=== PATIENT | male | born 1940 | race Caucasian/White ===

== ENCOUNTER → 2022-06-14 10:04 | Outpatient (BNVA) | payer MEDICARE, OTHER, SELFPAY | PROVIDERS: Visit Provider Nurse Practitioner Family | DX: I87.2 Venous insufficiency (chronic) (peripheral) (principal); L97.822 Non-pressure chronic ulcer of other part of left lower leg with fat layer exposed; I96 Gangrene, not elsewhere classified | CPT/HCPCS: 11042; 87070; 87077; 87176; 87186; 87205; 99203 ==

== ENCOUNTER → 2022-06-21 10:21 | Outpatient (BNVA) | payer MEDICARE, OTHER, SELFPAY | PROVIDERS: Visit Provider Thoracic Surgery (Cardiothoracic Vascular Surgery) | DX: I96 Gangrene, not elsewhere classified (principal); I87.2 Venous insufficiency (chronic) (peripheral); L97.822 Non-pressure chronic ulcer of other part of left lower leg with fat layer exposed | CPT/HCPCS: 11042; A6252 ==

== ENCOUNTER → 2022-06-26 12:58 | Outpatient (BNVA) | payer MEDICARE, OTHER, SELFPAY | PROVIDERS: Visit Provider Nurse Practitioner Family | DX: I96 Gangrene, not elsewhere classified (principal); I87.2 Venous insufficiency (chronic) (peripheral); L97.822 Non-pressure chronic ulcer of other part of left lower leg with fat layer exposed | CPT/HCPCS: 11042; A6252 ==

== ENCOUNTER → 2022-06-29 13:21 | Outpatient (BNVA) | payer MEDICARE, OTHER, SELFPAY | PROVIDERS: Visit Provider Surgery | DX: I96 Gangrene, not elsewhere classified (principal); I87.2 Venous insufficiency (chronic) (peripheral); L97.822 Non-pressure chronic ulcer of other part of left lower leg with fat layer exposed | CPT/HCPCS: 29581; A6252 ==

== ENCOUNTER → 2022-07-03 10:37 | Outpatient (BNVA) | payer MEDICARE, OTHER, SELFPAY | PROVIDERS: Visit Provider Nurse Practitioner Family | DX: I96 Gangrene, not elsewhere classified (principal); I87.2 Venous insufficiency (chronic) (peripheral); L97.822 Non-pressure chronic ulcer of other part of left lower leg with fat layer exposed | CPT/HCPCS: 11042; A6252 ==

== ENCOUNTER → 2022-07-10 09:22 | Outpatient (BNVA) | payer MEDICARE, OTHER, SELFPAY | PROVIDERS: Visit Provider Nurse Practitioner Family | DX: I96 Gangrene, not elsewhere classified (principal); I87.2 Venous insufficiency (chronic) (peripheral); L97.822 Non-pressure chronic ulcer of other part of left lower leg with fat layer exposed | CPT/HCPCS: 11042 ==

== ENCOUNTER → 2022-07-17 08:23 | Outpatient (BNVA) | payer MEDICARE, OTHER, SELFPAY | PROVIDERS: Visit Provider Nurse Practitioner Family | DX: I96 Gangrene, not elsewhere classified (principal); I87.2 Venous insufficiency (chronic) (peripheral); L97.822 Non-pressure chronic ulcer of other part of left lower leg with fat layer exposed | CPT/HCPCS: 11042; A6252 ==

== ENCOUNTER → 2022-07-24 10:28 | Outpatient (BNVA) | payer MEDICARE, OTHER, SELFPAY | PROVIDERS: Visit Provider Nurse Practitioner Family | DX: I96 Gangrene, not elsewhere classified (principal); I87.2 Venous insufficiency (chronic) (peripheral); L97.822 Non-pressure chronic ulcer of other part of left lower leg with fat layer exposed | CPT/HCPCS: 11042 ==

== ENCOUNTER → 2022-07-31 13:04 | Outpatient (BNVA) | payer MEDICARE, OTHER, SELFPAY | PROVIDERS: Visit Provider Nurse Practitioner Family | DX: I96 Gangrene, not elsewhere classified (principal); I87.2 Venous insufficiency (chronic) (peripheral); L97.822 Non-pressure chronic ulcer of other part of left lower leg with fat layer exposed | CPT/HCPCS: 11042 ==

== ENCOUNTER → 2022-08-07 13:00 | Outpatient (BNVA) | payer MEDICARE, OTHER, SELFPAY | PROVIDERS: Visit Provider Nurse Practitioner Family | DX: I96 Gangrene, not elsewhere classified (principal); I87.2 Venous insufficiency (chronic) (peripheral); L97.822 Non-pressure chronic ulcer of other part of left lower leg with fat layer exposed | CPT/HCPCS: 11042; A6251 ==

== ENCOUNTER → 2022-08-14 08:50 | Outpatient (BNVA) | payer MEDICARE, OTHER, SELFPAY | PROVIDERS: Visit Provider Nurse Practitioner Family | DX: I96 Gangrene, not elsewhere classified (principal); I87.2 Venous insufficiency (chronic) (peripheral); L97.822 Non-pressure chronic ulcer of other part of left lower leg with fat layer exposed | CPT/HCPCS: 11042; A6252 ==

== ENCOUNTER → 2022-08-21 10:20 | Outpatient (BNVA) | payer MEDICARE, OTHER, SELFPAY | PROVIDERS: Visit Provider Nurse Practitioner Family | DX: I87.2 Venous insufficiency (chronic) (peripheral) (principal); L97.822 Non-pressure chronic ulcer of other part of left lower leg with fat layer exposed | CPT/HCPCS: 99212 ==

== ENCOUNTER 2022-08-28 10:36 | Inpatient (IN) | payer MEDICARE, OTHER, SELFPAY ==
[2022-08-28] VITALS (29 sets, daily range): BP systolic 85–136; BP diastolic 47–83; PULSE 68–130; RESP 10–22; TEMP 36.8–36.9; O2SAT 94–100; BMI 32.1
--- NOTE | 2022-08-28 11:10 | XRR_ITS ---
PROCEDURE INFORMATION: Exam: XR Chest Exam date and time: 08/28/2022 12:19 PM Age: 81 years old Clinical indication: Shortness of breath; Patient HX: Tachycardia; Additional info: SOB TECHNIQUE: Imaging protocol: Radiologic exam of the chest. Views: 1 view. COMPARISON: No relevant prior studies available. 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 No pneumonia. Pleural spaces: Unremarkable. No pleural effusion. No pneumothorax. Heart/Mediastinum: The heart is not enlarged. The aorta is calcified and tortuous. There is benign calcification of the azygous lymph node. Bones/joints: Unremarkable. XR/XR chest 1V portable [id number] IMPRESSION: No acute abnormality.
--- NOTE | 2022-08-28 11:13 | ED_ITS ---
HPI - Arrhythmia/Palpitations General: Chief Complaint: Arrhythmia/Palpitations Stated Complaint: Chest Pain Time Seen by Provider: 08/28/22 11:00 History of Present Illness: Patient comes in by EMS from the [facility] [place] with palpitations and tachycardia. In route EMS did an EKG which shows a flutter with variable conduction and rapid ventricular response. Patient denies any history of abnormal rhythm. Denies any recent cold symptoms including no fever, cough, congestion, vomiting, or diarrhea. Denies chest pain, or shortness of breath. Associated symptoms: Deny anxiety, nausea or vomiting Review of Systems Const: Denies: fever(s) or body aches Eyes: Denies: change in vision or blurry vision ENMT: Denies: throat pain or odynophagia Card: Reports: palpitations; Denies: chest pain Resp: Denies: dyspnea or productive cough GI: Denies: abdominal pain, nausea or vomiting : Denies: flank pain or dysuria Musc: Denies: neck pain or back pain Skin/Breast: Reports: other (Redness and swelling to the left lower extre mity); Denies: rash or pruritus Neuro: Denies: headache(s) or numbness in extremities Psych: Denies: anxiety or change in appetite Endo: Denies: polyuria or excessive sweating Physical Exam Const: COMMON NORMALS: no acute distress, patient oriented x3, healthy appearing and alert HENMT: COMMON NORMALS: normocephalic and atraumatic HEAD & SCALP: normocephalic and atraumatic Eye: COMMON NORMALS: Equal, round and reactive pupils present and EOMs intact bilaterally PUPIL: Yes Equal, round and reactive pupils present Neck/C-Spine: COMMON NORMALS: full ROM and supple Resp: COMMON NORMALS: normal respiratory effort, No retractions and No use of accessory muscles Cardio: OTHER: Tachycardia with an irregularly irregular rhythm GI: COMMON NORMALS: Normal to inspection, nondistended, normoactive bowel sounds present, Soft to palpation and non-tender PALPATION: Yes Soft to palpation Back/Pelvis: COMMON NORMALS: thoracic and lumbar spine normal to inspection and no thoracic nor lumbar tenderness Extremity: COMMON NORMALS: normal to inspection and full ROM Neuro: COMMON NORMALS: patient oriented x3 SENSORIUM/ORIENTATION: Yes alert Psych: COMMON NORMALS: mental status grossly normal and cooperative Skin: OTHER: Left lower leg is erythematous, hot to touch, swollen, with multiple small healing ulcerating wound Course Vital Signs: Vital signs: Vital Signs Temperature 98.3 F 08/28/22 10:39 Pulse Rate 77 08/28/22 12:30 Respiratory Rate 17 08/28/22 12:30 Blood Pressure 135/73 08/28/22 12:30 Pulse Oximetry 97 08/28/22 12:30 Oxygen Delivery Me thod 08/28/22 11:50 MDM - Arrhythmia/Palpitations Medical Decision Making Patient comes in by EMS from the wound care center with palpitations and tachycardia. In route EMS did an EKG which shows a flutter with variable conduction and rapid ventricular response. Patient denies any history of abnormal rhythm. Denies any recent cold symptoms including no fever, cough, congestion, vomiting, or diarrhea. Denies chest pain, or shortness of breath. On physical exam he is tachycardic with an irregular irregular rhythm. He also has erythema, and chronic wound to his left lower extremity. The patient states that the erythema is no worse than normal. His left lower leg is erythematous, swollen, and hot to touch. Will check labs, give IV fluids, start diltiazem bolus and drip, and reassess. On reassessment I talked to the patient about the test results. I discussed the case with the hospitalist, and we will admit for further work-up and treatment of his new onset a flutter with RVR. His heart rate is significantly improved on the diltiazem drip. Lab Data 08/28/22 11:05 08/28/22 11:05 Radiology Impressions Chest X-Ray 08/28/22 11:10 IMPRESSION: No acute abnormality. Laboratory Results WBC 7.5 10^3/uL (4.0-10.0) 08/28/22 11:05 RBC 4.76 10^6/uL (4.1-5.3) 08/28/22 11:05 Hgb 14.6 g/dL (11.7-16.6) 08/28/22 11:05 Hct 45.0 % (42.0-52.0) 08/28/22 11:05 MCV 94.5 fl (80-94) H 08/28/22 11:05 MCH 30.7 pg (28.0-34.0) 08/28/22 11:05 MCHC 32.4 g/dL (30.0-36.0) 08/28/22 11:05 RDW 14.1 % (12.1-15.1) 08/28/22 11:05 Plt Count 294 10^3/cmm (130-400) 08/28/22 11:05 MPV 9.4 fL (7.4-10.4) 08/28/22 11:05 Neut % (Auto) 60.2 % 08/28/22 11:05 Lymph % (Auto) 28.4 % 08/28/22 11:05 [place] % (Auto) 7.0 % 08/28/22 11:05 Eos % (Auto) 3.2 % 08/28/22 11:05 Baso % (Auto) 0.8 % 08/28/22 11:05 Neut # (Auto) 4.54 10^3/uL (1.8-7.7) 08/28/22 11:05 Lymph # (Auto) 2.1 10^3/uL (0.8-4.8) 08/28/22 11:05 [place] # (Auto) 0.5 10^3/uL (0.2-0.9) 08/28/22 11:05 Eos # (Auto) 0.2 10^3/uL (0.0-0.8) 08/28/22 11:05 Baso # (Auto) 0.1 10^3/uL (0.0-0.1) 08/28/22 11:05 Nucleated RBC % (auto) 0 % 08/28/22 11:05 Nucleated RBCs # 0.0 /100WBC 08/28/22 11:05 PT 13.00 SECONDS (12.1-14.9) 08/28/22 11:05 INR 0.96 (0.8-1.2) 08/28/22 11:05 APTT 30.1 SECONDS (23.9-36.7) 08/28/22 11:05 Sodium 139 mmol/L (136-145) 08/28/22 11:05 Potassium 3.8 mmol/L (3.5-5.1) 08/28/22 11:05 Chloride 102 mmol/L (98-107) 08/28/22 11:05 Carbon Dioxide 27 mmol/L (22-29) 08/28/22 11:05 Anion Gap 13.8 (5-19) 08/28/22 11:05 BUN 25 mg/dL (8-23) H 08/28/22 11:05 Creatinine 1.1 mg/dL (0.7-1.2) 08/28/22 11:05 GFR Calculation Not Reportable 08/28/22 11:05 Glucose 132 mg/dL (65-115) H 08/28/22 11:05 Calculated Osmolality 294 mOsm/kg (285-295) 08/28/22 11:05 Calcium 9.4 mg/dL (8.5-10.5) 08/28/22 11:05 Total Bilirubin 0.3 mg/dL (0.15-1.2) 08/28/22 11:05 AST 26 U/L (0-40) 08/28/22 11:05 ALT 24 U/L (0-41) 08/28/22 11:05 Alkaline Phosphatase 73 U/L (40-130) 08/28/22 11:05 Troponin T Baseline 24 ng/L (0-15) H 08/28/22 11:05 Total Protein 7.3 g/dL (6.6-8.7) 08/28/22 11:05 Albumin 4.1 g/dL (3.5-5.2) 08/28/22 11:05 Globulin 3.2 g/dL (1.3-4.6) 08/28/22 11:05 Critical Care Time Critical Care Time: Critical Care Time: Yes Total Critical Care Time: 35 Attestation: This case had a high probability of a clinically significant, sudden, or life threatening deterioration of this patient's condition which required my full and direct attention, intervention and personal management. Discharge Plan Discharge Patient Disposition: Placed in Observation Clinical Impression: Atrial flutter with rapid ventricular response Condition: Stable Prescriptions: No Action levothyroxine 137 mcg tablet 137 mcg PO QAM aspirin [Aspir-81] 81 mg Tablet,Delayed Release (Dr/Ec) 81 mg PO QAM acetaminophen [Tylenol Arthritis Pain] 650 mg Tablet Extended Release 1,300 mg PO BID modafinil 200 mg tablet 300 mg PO QAM balsalazide 750 mg capsule 1,500 mg PO QAM rosuvastatin 10 mg tablet 10 mg PO QAM naproxen 250 mg Tablet 500 mg PO Q6H PRN (Reason: Pain) Vitamin C 500 mg Tablet,Chewable 1,500 mg PO DAILY cranberry extract 50 mg Tablet,Chewable 100 mg PO DAILY Elderberry Gummies 1 cap PO DAILY Coding Level of Care Code ED Flight Crew Ordnanceman for Chg Fwd Exam Comprehensive
[2022-08-28 11:24] LABS: Basophils # 0.1 10^3/uL (0.0-0.1); Basophils % 0.8 %; Eosinophils # 0.2 10^3/uL (0.0-0.8); Eosinophils % 3.2 %; Hemoglobin 14.6 g/dL (11.7-16.6); Lymphocytes # 2.1 10^3/uL (0.8-4.8); Lymphocytes % 28.4 %; Mean Corpuscular HGB Conc 32.4 g/dL (30.0-36.0); Mean Corpuscular Hemoglobin 30.7 pg (28.0-34.0); Mean Corpuscular Volume 94.5 fl (80-94); Mean Platelet Volume 9.4 fL (7.4-10.4); Monocytes # 0.5 10^3/uL (0.2-0.9); Neutrophils # 4.54 10^3/uL (1.8-7.7); Neutrophils % 60.2 %; Nucleated Red Blood Cells % 0 %; Platelet Count 294 10^3/cmm (130-400); Red Blood Count 4.76 10^6/uL (4.1-5.3); Red Cell Distribution Width 14.1 % (12.1-15.1); White Blood Count 7.5 10^3/uL (4.0-10.0)
[2022-08-28 11:29] LABS: INR 0.96 (0.8-1.2)
[2022-08-28 11:30] LABS: Partial Thromboplastin Time 30.1 SECONDS (23.9-36.7)
--- NOTE | 2022-08-28 11:34 | ECG_ITS ---
[facility] Test Date: 2022-08-28 Pat Name: CHEMA GONZALEZ Department: Room: Gender: Male Schedule Maker: : 1940 Requested By: Seth Boyer Order Number: [id number] Geo MD: Noreen Douglas M.D. Measurements Intervals [place] Rate: 88 P: 0 FL: 0 QRS: -67 QRSD: 154 T: 31 QT: 384 QTc: 465 Interpretive Statements ATRIAL FLUTTER RIGHT BUNDLE BRANCH BLOCK LEFT ANTERIOR FASCICULAR BLOCK [QRS AXIS <= -45, QR IN I, RS IN II] MODERATE VOLTAGE CRITERIA FOR LVH, CONSIDER NORMAL VARIANT No previous ECG available for comparison Electronically Signed On 08-28-2022 18:10:10 [employer]OLLEY[employer]ALL COACH by Noreen Douglas M.D. [id number]
[2022-08-28] MEDS: calcium gluconate 0.9% NaCL 1 GM/50 ML PREMIX IV (11:36)
[2022-08-28] MEDS: sodium chloride 0.9% 1,000 ML 999 ML IV (11:37)
[2022-08-28 11:40] LABS: Alanine Aminotransferase 24 U/L (0-41); Albumin Level 4.1 g/dL (3.5-5.2); Alkaline Phosphatase 73 U/L (40-130); Anion Gap 13.8 (5-19); Aspartate Amino Transferase 26 U/L (0-40); Blood Urea Nitrogen 25 mg/dL (8-23); Calcium 9.4 mg/dL (8.5-10.5); Carbon Dioxide 27 mmol/L (22-29); Chloride 102 mmol/L (98-107); Globulin 3.2 g/dL (1.3-4.6); Glucose 132 mg/dL (65-115); Osmolality Calculated 294 mOsm/kg (285-295); Potassium 3.8 mmol/L (3.5-5.1); Sodium 139 mmol/L (136-145); Total Bilirubin 0.3 mg/dL (0.15-1.2); Total Protein 7.3 g/dL (6.6-8.7)
[2022-08-28 11:45] LABS: Troponin(5th) Baseline 24 ng/L (0-15)
[2022-08-28] MEDS: dilTIAZem 5 mg/mL SDV 5 mL IVP (12:02)
[2022-08-28] MEDS: dilTIAZem 100 MG in sodium chloride 0.9% (add-van) 100 ML IV (12:26)
--- NOTE | 2022-08-28 12:46 | PC.PHAR ---
pt and pts lul (home#[phone]) (cell# [phone])verified pts medications
[2022-08-28 13:50] LABS: Troponin 5 2HR 28.77 ng/L (0-15)
[2022-08-28 13:52] LABS: Troponin 5 2HR Delta 4.77 ABS# (0-10)
--- NOTE | 2022-08-28 14:57 | PM.HP ---
Providers/Chief Complaint Admitting Physician: Teresita Menchaca MD Primary Care Provider: Dr. Yokasta Joseph, [facility] in [place] Chief Complaint: Chest Pain History of Present Illness Clint Aguila is a 81 year old male who presented to the emergency room from wound care clinic due to report of some chest pain and tachycardia. Patient has been followed at wound care clinic for some time for wounds to his left lower extremity. He has known peripheral vascular disease with chronic venous insufficiency and has had several sores to his left leg. Today he describes some chest discomfort that went into the upper half of both of his arms to the elbows. Nursing staff checked his vital signs and found him to be tachycardic. Given the combination of chest pain and tachycardia they called for an ambulance to bring him to the emergency room for further evaluation. EMS performed EKG that showed atrial fibrillation/flutter with rapid ventricular response. Other than the transient chest discomfort extending into his arms, patient denied any specific symptoms. He was not aware that his heart rate was high. He denies having had similar findings previously. He has never been told that he has an abnormal heart rhythm. He has a history of aortic stenosis, hyperlipidemia and already mentioned peripheral vascular disease but is not otherwise known to have arterial disease nor coronary artery disease. He denies any recent issues with dizziness or syncope. He is has an occasional cough and describes seasonal chest congestion. He has had issues with a diagnosis of asthma in the past but denies any recent problems with it. No recent fever or chills. He has had some constipation recently which is new for him usually has soft long stools. No blood in his stools have been noted nor any other signs of bleeding lately. No complaints of any focal weakness, numbness or paresthesias. He has not had any further chest pain. In the emergency room initial heart rate as high as into the 120s and 130s. Patient received Cardizem bolus and was started on a Cardizem drip with rate control obtained thereafter. Initial troponin at 24 with 2-hour troponin of 28.77. Given advanced age, comorbidities and new onset atrial fibrillation requiring IV diltiazem for rate control request was made for admission. Review of Systems Const: Reports: fatigue; Denies: fever(s) ENMT: Denies: throat pain Card: Reports: chest pain (Really more upper arm pain bilaterally) and edema; Denies: palpitations, syncope or orthopnea Resp: Reports: non-productive cough and chest congestion (Chronic rather than acute, more seasonal); Denies: pain on inspiration GI: Reports: constipation and change in bowel habits (Not soft like they usually are); Denies: abdominal pain, nausea, vomiting or hematochezia : Denies: change in urine stream Skin/Breast: Reports: sores; Denies: pruritus Neuro: Denies: headache(s), difficulty walking or dizziness Medications/Allergies Home Medications Medication Instructions Recorded Confirmed Last Taken Type Elderberry Gummies 1 cap PO DAILY 08/28/22 08/28/22 Unknown History acetaminophen 650 mg 1,300 mg PO BID 08/28/22 08/28/22 08/28/22 History tablet,extended release (Tylenol Arthritis Pain) ascorbic acid (vitamin C) 500 mg 1,500 mg PO DAILY 08/28/22 08/28/22 Unknown History chewable tablet (Vitamin C) aspirin 81 mg tablet,delayed 81 mg PO QAM 08/28/22 08/28/22 08/28/22 History release balsalazide 750 mg capsule 1,500 mg PO QAM 08/28/22 08/28/22 08/28/22 History cranberry extract 50 mg chewable 100 mg PO DAILY 08/28/22 08/28/22 Unknown History tablet levothyroxine 137 mcg tablet 137 mcg PO QAM 08/28/22 08/28/22 08/28/22 History modafinil 200 mg tablet 300 mg PO QAM 08/28/22 08/28/22 08/28/22 History naproxen 250 mg tablet 500 mg PO Q6H PRN Pain 08/28/22 08/28/22 08/28/22 History rosuvastatin 10 mg tablet 10 mg PO QAM 08/28/22 08/28/22 08/28/22 History Allergies Allergy/AdvReac Type Severity Reaction Status Date / Time No Known Allergies Allergy Verified 06/21/22 10:47 PFSH Acute PFSH: Medical History (Updated 08/28/22 @ 20:42 by Teresita Menchaca MD) ADHD on modafinil Aortic valve stenosis Asthma Blood donor Erectile dysfunction History of blood clots in arm Hyperlipidemia Hypothyroidism Osteoarthritis Peripheral vascular disease Ulcerative colitis on balsalazide 2 tabs per day Surgical History (Updated 08/28/22 @ 20:37 by Teresita Menchaca MD) History of arthroscopy of left knee History of hand surgery left History of left inguinal hernia repair History of prior ablation treatment venous ablation to both lower extremities History of right inguinal hernia repair History of total left knee replacement Family History (Updated 08/28/22 @ 15:58 by Teresita Menchaca MD) Mother , age 96 Leukemia Father , age 95 CHF (congestive heart failure) Denies family history of Clotting disorder Atrial fibrillation Stroke Social History (Updated 08/28/22 @ 21:08 by Teresita Menchaca MD) Smoking and tobacco status: former smoker Alcohol intake: never Substance/Drug Use: never Marital status: Vitals/I&O/Wt Last Vital Signs Temp 98.3 F 08/28/22 10:39 Pulse 77 08/28/22 12:30 Resp 17 08/28/22 12:30 BP 135/73 08/28/22 12:30 Pulse Ox 97 08/28/22 12:30 O2 Del Method 08/28/22 11:50 Weight last 48 hrs Weight 108.862 kg Physical Exam Narrative: Constitutional: Awake and alert, able to provide full history, cooperative HEENT: Normocephalic, atraumatic, pupils are equally reactive, extraocular movements are intact, nasopharynx is clear, oropharynx is clear, mucous membranes slightly dry, facial vasculature is noted most prominently on the right cheek Neck: Large but supple, no JVD appreciated during examination Respiratory: Clear to auscultation bilaterally without any rales rhonchi or wheezes noted Cardiovascular: Regular rhythm, presently rate controlled, murmur of aortic stenosis 3/6, 1+ peripheral pulses upper extremities, less prominent in lower extremities but palpable Abdomen: Soft, nontender, positive bowel sounds Extremities: Compression stockings are in place to both lower extremities with pitting edema noted, stockings were removed from the calves and replaced. There are 3 small wounds to the left anterior pacheco with dressings in place, the most distal 1 with dried drainage measuring about half a centimeter in diameter. There is erythema with some dry flaking skin. No drainage is otherwise noted. Right lower extremity not as erythematous as the left lower extremity. No calf tenderness. Skin: See above description of wounds and stasis changes to lower extremities. Upper extremities also with dry skin. No large areas of bruising noted. Neuro: Speech clear, face symmetric, equal handgrip, moves all extremities, no tremors or abnormal movements Psych: Normal affect Data 08/28/22 11:05 08/28/22 11:05 Other Labs: Radiology Impressions Chest X-Ray 08/28/22 11:10 IMPRESSION: No acute abnormality. Laboratory Results WBC 7.5 10^3/uL (4.0-10.0) 08/28/22 11:05 RBC 4.76 10^6/uL (4.1-5.3) 08/28/22 11:05 Hgb 14.6 g/dL (11.7-16.6) 08/28/22 11:05 Hct 45.0 % (42.0-52.0) 08/28/22 11:05 MCV 94.5 fl (80-94) H 08/28/22 11:05 MCH 30.7 pg (28.0-34.0) 08/28/22 11:05 MCHC 32.4 g/dL (30.0-36.0) 08/28/22 11:05 RDW 14.1 % (12.1-15.1) 08/28/22 11:05 Plt Count 294 10^3/cmm (130-400) 08/28/22 11:05 MPV 9.4 fL (7.4-10.4) 08/28/22 11:05 Neut % (Auto) 60.2 % 08/28/22 11:05 Lymph % (Auto) 28.4 % 08/28/22 11:05 [place] % (Auto) 7.0 % 08/28/22 11:05 Eos % (Auto) 3.2 % 08/28/22 11:05 Baso % (Auto) 0.8 % 08/28/22 11:05 Neut # (Auto) 4.54 10^3/uL (1.8-7.7) 08/28/22 11:05 Lymph # (Auto) 2.1 10^3/uL (0.8-4.8) 08/28/22 11:05 [place] # (Auto) 0.5 10^3/uL (0.2-0.9) 08/28/22 11:05 Eos # (Auto) 0.2 10^3/uL (0.0-0.8) 08/28/22 11:05 Baso # (Auto) 0.1 10^3/uL (0.0-0.1) 08/28/22 11:05 Nucleated RBC % (auto) 0 % 08/28/22 11:05 Nucleated RBCs # 0.0 /100WBC 08/28/22 11:05 PT 13.00 SECONDS (12.1-14.9) 08/28/22 11:05 INR 0.96 (0.8-1.2) 08/28/22 11:05 APTT 30.1 SECONDS (23.9-36.7) 08/28/22 11:05 Sodium 139 mmol/L (136-145) 08/28/22 11:05 Potassium 3.8 mmol/L (3.5-5.1) 08/28/22 11:05 Chloride 102 mmol/L (98-107) 08/28/22 11:05 Carbon Dioxide 27 mmol/L (22-29) 08/28/22 11:05 Anion Gap 13.8 (5-19) 08/28/22 11:05 BUN 25 mg/dL (8-23) H 08/28/22 11:05 Creatinine 1.1 mg/dL (0.7-1.2) 08/28/22 11:05 GFR Calculation Not Reportable 08/28/22 11:05 Glucose 132 mg/dL (65-115) H 08/28/22 11:05 Calculated Osmolality 294 mOsm/kg (285-295) 08/28/22 11:05 Calcium 9.4 mg/dL (8.5-10.5) 08/28/22 11:05 Total Bilirubin 0.3 mg/dL (0.15-1.2) 08/28/22 11:05 AST 26 U/L (0-40) 08/28/22 11:05 ALT 24 U/L (0-41) 08/28/22 11:05 Alkaline Phosphatase 73 U/L (40-130) 08/28/22 11:05 Troponin T Baseline 24 ng/L (0-15) H 08/28/22 11:05 Troponin T 120 Minute 28.77 ng/L (0-15) H 08/28/22 13:26 Delta Troponin T 4.77 ABS# (0-10) 08/28/22 13:26 Troponin T Hi Sens 6Hr 31.97 ng/L (0-15) H 08/28/22 17:13 Troponin T Hi Sens 6Hr Delta 7.97 ng/L (0-12) 08/28/22 17:13 Total Protein 7.3 g/dL (6.6-8.7) 08/28/22 11:05 Albumin 4.1 g/dL (3.5-5.2) 08/28/22 11:05 Globulin 3.2 g/dL (1.3-4.6) 08/28/22 11:05 Urine Color Yellow (Yellow) 08/28/22 14:28 Urine Appearance Cloudy (CLEAR) A 08/28/22 14:28 Urine pH 5 (5-7) 08/28/22 14:28 Ur Specific [place] 1.025 (1.005-1.030) 08/28/22 14:28 Urine Protein Trace (Negative) 08/28/22 14:28 Urine Glucose (UA) Norm (Normal) 08/28/22 14:28 Urine Ketones 1+ (Negative) H 08/28/22 14:28 Urine Blood Neg (Negative) 08/28/22 14:28 Urine Nitrate Negative (Negative) 08/28/22 14:28 Urine Bilirubin Neg (Negative) 08/28/22 14:28 Urine Urobilinogen Norm mg/dL (Negative) 08/28/22 14:28 Ur Leukocyte Esterase Negative (Negative) 08/28/22 14:28 Urine RBC None /hpf (0-2) 08/28/22 14:28 Urine WBC 0-4 /hpf (0-5) H 08/28/22 14:28 Ur Squamous Epith Cells None /hpf (0-5) 08/28/22 14:28 Calcium Oxalate Crystal 0-4 /hpf H 08/28/22 14:28 Amorphous Sediment Not Reportable 08/28/22 14:28 Urine Bacteria Trace /hpf (NONE) 08/28/22 14:28 Urine Mucus Trace /hpf 08/28/22 14:28 A&P Assessment and plan (1) Chest pain: Predominantly noted in both upper arms, transient Qualifiers: Chest pain type: other chest pain Qualified Code(s): R07.89 - Other chest pain (2) Atrial flutter with rapid ventricular response: Newly found, minimal if any symptoms, onset unclear though could have coincided with arm pain onset. No known history of coronary artery disease though does have peripheral vascular disease requiring venous intervention. Has hyperlipidemia. Patient has a known history of aortic stenosis and hypothyroidism. Has had difficulty with sleep lately. Remote diagnosis of asthma which has not been causing him issues lately. Does not appear acutely ill from viral or bacterial infectious source. No pleuritic chest pain nor hypoxemia. Does have some facial vasculature that makes me wonder about sleep apnea or pulmonary hypertension. No history of alcohol use and in fact reports that he does not tolerate much at all. No recent medication changes. (3) Aortic valve stenosis: Valve area unknown but longstanding diagnosis Qualifiers: Cardiac valve disease etiology: etiology unspecified Qualified Code(s): I35.0 - Nonrheumatic aortic (valve) stenosis (4) Hypothyroidism: On chronic levothyroxine Qualifiers: Hypothyroidism type: acquired Qualified Code(s): E03.9 - Hypothyroidism, unspecified (5) Hyperlipidemia: On chronic statin therapy Qualifiers: Hyperlipidemia type: mixed hyperlipidemia Qualified Code(s): E78.2 - Mixed hyperlipidemia (6) Wound of left lower extremity: Follows at wound care clinic, several small stasis wounds (7) Peripheral vascular disease: On chronic aspirin therapy (8) Ulcerative colitis: On chronic balsalazide, no recent bleeding though has had recent change in stools with constipation Qualifiers: Ulcerative colitis location: unspecified ulcerative colitis location Digestive disease complication type: without complication Qualified Code(s): K51.90 - Ulcerative colitis, unspecified, without complications (9) ADHD: On chronic modafinil (10) Asthma: Chronic diagnosis but generally no longer having symptoms Plan Chronic NSAID use as needed for pain Mild azotemia and 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 Mild hyperglycemia without a known history of diabetes Observation admission Start transition to oral diltiazem, weaning IV diltiazem drip Monitor heart rate and blood pressure Continue serial cardiac enzymes Echocardiogram Treatment dose Lovenox currently Reviewed with patient potential need for anticoagulation upon discharge to help decrease risk of stroke Check TSH Low rate of IV fluids with potassium Recheck electrolytes in the morning including magnesium Continue home aspirin and statin statin Hold vitamin C, cranberry extract, elderberry Gummies Hold Naprosyn; with anticipation of potential anticoagulation upon discharge need to further review risk and benefits of continuing NSAID therapy May continue home modafinil and balsalazide if available, discussed with patient that neither are on formulary Continue usual wound care Monitor for recurrent episodes of chest and arm discomfort or development of respiratory symptoms Check hemoglobin A1c Supportive care otherwise Anticipate discharge home with outpatient follow-up to primary care provider likely with rate controlling agent and anticoagulation depending on clinical course. Findings, concerns and plans within the hospital and potential treatment upon discharge were discussed with patient as well as his family and all were given an opportunity to ask questions Full code Attestations Medical Necessity Statement*: Currently anticipate a stay less than two midnights in a gentleman with new onset or newly identified atrial fibrillation/atrial flutter. Rate control has been achieved with initiation of Cardizem. He did have transient chest and upper arm discomfort today. He is being admitted for transition to oral treatment for rate control and further cardiac evaluation as described along with IV fluids and other monitoring/plans of care as described above Coding Level of Care Code Acute Ekg/Ecg Technician for Michael Fwd Diagnoses Chest pain R07.89 Chest pain type: other chest pain Atrial flutter with rapid ventricular response I48.92 Aortic valve stenosis I35.0 Cardiac valve disease etiology: etiology unspecified Hypothyroidism E03.9 Hypothyroidism type: acquired Hyperlipidemia E78.2 Hyperlipidemia type: mixed hyperlipidemia Wound of left lower extremity S81.802A Peripheral vascular disease I73.9 Ulcerative colitis K51.90 Ulcerative colitis location: unspecified ulcerative colitis location Digestive disease complication type: without complication ADHD F90.9 Asthma J45.909
--- NOTE | 2022-08-28 16:03 | USCV_ITS ---
Clint Aguila Age: 81 Gender: M : 1940 Exam Date: 08/28/2022 18:01 Ordering Phys: Teresita Menchaca MD Technologist: CHELY Exam Location: [facility] [place] Indication: new onset Atrial fibrillation. No history of cardiac intervention per patient. BP: 127 / 72 HR: 76 Rhythm: Sinus Technical Quality: Adequate MEASUREMENTS (Male / Female) Normal Values 2D ECHO LV Diastolic Diameter PLAX 4.2 cm 4.2 - 5.9 / 3.9 - 5.3 cm LV Systolic Diameter PLAX 2.7 cm IVS Diastolic Thickness 1.7 cm 0.6 - 1.0 / 0.6 - 0.9 cm IVS Systolic Thickness 2.1 cm LVPW Diastolic Thickness 1.8 cm 0.6 - 1.0 / 0.6 - 0.9 cm LVPW Systolic Thickness 1.9 cm LVOT Diameter 1.9 cm LV Ejection Fraction 2D Teich 63.6 % LV Ejection Fraction MOD 2C 67.0 % LV Ejection Fraction 2C AL 71.7 % LA Diameter 3.7 cm LA Width 3.6 cm LA Height 6.1 cm RA Width 3.4 cm RA Height 3.2 cm Aorta at Sinotubular Diameter 3.2 cm IVC Diameter 2.2 cm M-MODE Aortic Annulus Diameter 3.7 cm LA Ao Ratio MM 0.9 MV E Point Septal Separation 0.6 cm DOPPLER AV Peak Velocity 422.7 cm/s LVOT Peak Velocity 90.0 cm/s AV Area Cont Eq vti 0.6 cm squared AV Area Cont Eq pk 0.6 cm squared MV Area PHT 4.0 cm squared Mitral E to A Ratio 1.3 MV E' Velocity 61.0 cm/s Mitral E to MV E' Ratio 11.0 Mitral E to LV E' Lateral Ratio 10.3 Mitral E to LV E' Septal Ratio 11.9 TR Peak Velocity 271.0 cm/s TR Peak Gradient 29.4 mmHg TV Peak E Velocity 59.0 cm/s Right Atrial Pressure 5.0 mmHg Pulmonary Artery Systolic Pressu 34.4 mmHg PV Peak Velocity 92.0 cm/s RV Acceleration Time 0.1 s RV Ejection Time 0.4 s RV AcT/ET 0.2 FINDINGS Left Ventricle Left ventricle is normal in size. LV systolic function is normal with EF of 55 to 60%. No regional wall motion abnormalities are seen. Moderate concentric left ventricular hypertrophy is seen. Diastolic function is abnormal Right Ventricle Normal in size and function Right Atrium Normal in size Left Atrium Normal in size Mitral Valve Moderate mitral annular calcification. Thickened mitral valve. Aortic Valve Moderate to severe calcification of the aortic valve. Moderate aortic regurgitation. Severe aortic stenosis with aortic valve area of 0.6 cm2 and mean gradient across aortic valve of 37.5 mmHg. Tricuspid Valve Trace tricuspid regurgitation. Insufficient TR jet to calculate RVSP Pulmonic Valve Not well visualized Pericardium Normal Aorta Normal in size IVC Appears to be normal CONCLUSIONS Technically limited quality echocardiogram because of poor ultrasonic windows. LV systolic function is normal with EF 55 to 60%. Moderate concentric hypertrophy is seen. Diastolic function is abnormal Moderate mitral annular calcification is seen. Thickened mitral valve. Moderate to severe calcification of aortic valve. Moderate aortic regurgitation Severe aortic stenosis with aortic valve area of 0.6 cm squared and mean gradient across aortic valve of 37.5 mmHg. Trace tricuspid regurgitation. No comparison studies are available Cuate Villa MD (Electronically Signed) Final Date: 29 August 2022 15:53 S
[2022-08-28 16:35] LABS: Bilirubin Urine Neg (Negative); Blood Urine Neg (Negative); Glucose Urine UA Norm (Normal); Ketones Urine 1+ (Negative); Nitrate Urine Negative (Negative); Protein Urine Trace (Negative); Specific Gravity, Urine 1.025 (1.005-1.030); Urine Appearance Cloudy (CLEAR); Urine Color Yellow (Yellow); pH Urine 5 (5-7)
[2022-08-28 16:36] LABS: Add Urine Culture? No; Add Urine Microscopic? YES; Bacteria Urine TRACE /hpf; Calcium Oxalate Crystals Urine 0-4 /hpf; Leukocyte Esterase Urine Negative (Negative); Mucus Urine TRACE /hpf; Urobilinogen Urine Norm (Negative); WBC Urine 0-4 /hpf (0-5)
[2022-08-28] MEDS: enoxaparin 120 mg/0.8 mL Syringe 110 MG SUBCUT (16:41)
[2022-08-28] MEDS: dilTIAZem 30 mg Tablet PO ×2 (16:41→22:58)
--- NOTE | 2022-08-28 17:07 | PC.NURSE ---
received into room 111-2 from er via stretcher at 1620.oriented to room environment.pt denies pain at present.atrial flutter at controlled rate on monitor.on cardizem drip at 5 mg/hr.plan to give 30 mg cardizem po,then turn off cardizem drip in 30 min per order.pt denies pain at present.instructed pt to notify staff for any pain,sob,or for any concerns at all.pt verb understanding of instructions
--- NOTE | 2022-08-28 17:30 | ECG_ITS ---
[facility] Test Date: 2022-08-28 Pat Name: Clint Aguila Department: Room: 111 Gender: Male New Accounts Clerk: : 1940 Requested By: Seth Boyer Order Number: [id number] Geo MD: Noreen Douglas M.D. Measurements Intervals [place] Rate: 73 P: 0 WA: 0 QRS: -43 QRSD: 168 T: 60 QT: 454 QTc: 503 Interpretive Statements ATRIAL FLUTTER LEFT AXIS DEVIATION [QRS AXIS < -30] RIGHT BUNDLE BRANCH BLOCK POSSIBLE SEPTAL MYOCARDIAL INFARCTION , OF INDETERMINATE AGE [30 ms Q WAVE IN V1/V2] Compared to ECG 08/28/2022 11:34:21 Left-axis deviation now present Left anterior fascicular block no longer present Myocardial infarct finding still present Electronically Signed On 08-28-2022 18:09:18 INSPECTION MACHINE TENDER by Noreen Douglas M.D. [id number]
[2022-08-28] MEDS: docusate sodium 100 mg Capsule PO (17:38)
[2022-08-28] MEDS: sodium chlor 0.9% + KCl 20 mEq 20 MEQ/1,000 ML BAG 75 MEQ IV (17:38)
[2022-08-28 17:46] LABS: Troponin 5 6HR 31.97 ng/L (0-15)
[2022-08-28 17:50] LABS: Troponin 5 6HR Delta 7.97 ng/L (0-12)
[2022-08-29] VITALS (8 sets, daily range): BP systolic 117–147; BP diastolic 60–78; PULSE 65–74; RESP 12–21; TEMP 36.4–37.2; O2SAT 92–98
[2022-08-29 03:43] LABS: Estmated Average Glucose 108; Hemoglobin A1C 5.4 % (4.0-6.0)
[2022-08-29 03:52] LABS: Anion Gap 11.5 (5-19); Blood Urea Nitrogen 23 mg/dL (8-23); Calcium 8.8 mg/dL (8.5-10.5); Carbon Dioxide 27 mmol/L (22-29); Chloride 106 mmol/L (98-107); Glucose 97 mg/dL (65-115); Magnesium 2.2 mg/dL (1.7-2.3); NT Pro B Type Natriuretic Pept 880 pg/mL (0-450); Osmolality Calculated 294 mOsm/kg (285-295); Phosphorus 3.5 mg/dL (2.5-4.5); Potassium 4.5 mmol/L (3.5-5.1); Sodium 140 mmol/L (136-145); Thyroid Stimulating Hormone 4.87 uIU/mL (0.27-4.20)
[2022-08-29] MEDS: atorvastatin 40 mg Tablet 20 MG PO (04:06)
[2022-08-29] MEDS: enoxaparin 120 mg/0.8 mL Syringe 110 MG SUBCUT ×2 (04:07→17:46)
[2022-08-29] MEDS: dilTIAZem 30 mg Tablet PO ×2 (04:07→09:32)
[2022-08-29] MEDS: levothyroxine 137 mcg Tablet PO (04:07)
[2022-08-29] MEDS: aspirin 81 mg EC Tablet PO (04:07)
--- NOTE | 2022-08-29 09:51 | P.PN_ITS ---
Subjective Subjective: Patient was seen and examined this morning was complaining of bilateral arm pain during the episode of palpitation yesterday.Currently he is converted to sinus rhythm. Medications: Medication Review Details: Generic Name Dose Route Start Last Admin Trade Name Terrie PRN Reason Stop Dose Admin Aspirin 81 mg 08/29/22 06:00 08/29/22 04:07 Aspirin 81 Mg Ec Tablet PO 81 mg QAM SANTOS Administration Atorvastatin Calci um 20 mg 08/29/22 06:00 08/29/22 04:06 Atorvastatin 40 Mg Tablet PO 20 mg QAM SANTOS Administration Docusate Sodium 100 mg 08/28/22 18:00 08/29/22 09:32 Docusate Sodium 100 Mg Capsule PO Not Given BID SANTOS Diltiazem HCl 100 mg/ Sodium 100 mls @ 0 mls/h r 08/28/22 11:15 08/28/22 17:27 Chloride IV Infused .Q0M SANTOS Titration Protocol Per Protocol Potassium Chloride /Sodium Chloride 20 meq in 1,000 m ls @ 75 mls/hr 08/28/22 16:00 08/29/22 05:36 Sodium Chlor 0.9 % + Kcl 20 Meq IV 0 mls/hr .[id number] SANTOS Infusion Levothyroxine Sodi um 137 mcg 08/29/22 06:00 08/29/22 04:07 Levothyroxine 13 7 Mcg Tablet PO 137 mcg QAM SANTOS Administration Non-Formulary Medi cation 1,500 mg 08/29/22 06:00 08/29/22 02:49 Balsalazide PO Not Given QAM SANTOS Non-Formulary Medi cation 300 mg 08/29/22 06:00 08/29/22 02:49 Modafinil PO Not Given QAM SANTOS Vitals/I&O/Wt Last Vital Signs Temp 97.6 F 08/29/22 07:28 Pulse 66 08/29/22 07:28 Resp 12 08/29/22 07:28 BP 137/72 08/29/22 07:28 Pulse Ox 98 08/29/22 07:28 O2 Del Method 08/29/22 07:28 08/28/22 08/29/22 08/29/22 22:59 06:59 14:59 Intake Total 1630 / 1630 1437.5 / 3067.5 360 / 360 Balance 1630 / 1630 1437.5 / 3067.5 360 / 360 Weight last 48 hrs Weight 107.615 kg Weight 108.862 kg Physical Exam Cardio: COMMON NORMALS: regular rate, regular rhythm, S1 normal heart sound present and S2 normal heart sound present RATE: regular rate RHYTHM: r egular rhythm HEART SOUNDS: S1 normal heart sound present and S2 normal heart sound present OTHER: ESM in aortic area GI: COMMON NORMALS: Normal to inspection, nondistended, normoactive bowel sounds present, Soft to palpation, non-tender, No hepatosplenomegaly present and no masses AUSCULTATION: Yes normoactive bowel sounds PALPATION: Yes Soft to palpation and Yes No hepatosplenomegaly present RECTAL EXAM: Yes deferred Extremity: COMMON NORMALS: no clubbing, cyanosis or edema and no pedal edema Data 08/28/22 11:05 08/29/22 03:15 A&P Assessment and plan (1) Chest pain: Predominantly noted in both upper arms, transient Qualifiers: Chest pain type: other chest pain Qualified Code(s): R07.89 - Other chest pain (2) Atrial flutter with rapid ventricular response: Newly found, minimal if any symptoms, onset unclear though could have coincided with arm pain onset. No known history of coronary artery disease though does have peripheral vascular disease requiring venous intervention. Has hyperlipidemia. Patient has a known history of aortic stenosis and hypothyroidism. Has had difficulty with sleep lately. Remote diagnosis of asthma which has not been causing him issues lately. Does not appear acutely ill from viral or bacterial infectious source. No pleuritic chest pain nor hypoxemia. Does have some facial vasculature that makes me wonder about sleep apnea or pulmonary hypertension. No history of alcohol use and in fact reports that he does not tolerate much at all. No recent medication changes. (3) Aortic valve stenosis: Valve area unknown but longstanding diagnosis Qualifiers: Cardiac valve disease etiology: etiology unspecified Qualified Code(s): I35.0 - Nonrheumatic aortic (valve) stenosis (4) Hypothyroidism: On chronic levothyroxine Qualifiers: Hypothyroidism type: acquired Qualified Code(s): E03.9 - Hypothyroidism, unspecified (5) Hyperlipidemia: On chronic statin therapy Qualifiers: Hyperlipidemia type: mixed hyperlipidemia Qualified Code(s): E78.2 - Mixed hyperlipidemia (6) Wound of left lower extremity: Follows at wound care clinic, several small stasis wounds (7) Peripheral vascular disease: On chronic aspirin therapy (8) Ulcerative colitis: On chronic balsalazide, no recent bleeding though has had recent change in stools with constipation Qualifiers: Digestive disease complication type: without complication Ulcerative colitis location: unspecified ulcerative colitis location Qualified Code(s): K51.90 - Ulcerative colitis, unspecified, without complications (9) ADHD: On chronic modafinil (10) Asthma: Chronic diagnosis but generally no longer having symptoms Plan 81-year-old male with past medical history of aortic valve stenosis, asthma , hypothyroidism, peripheral vascular disease was brought in with chief complaint of chest pain predominantly bilateral arm pain during the episode of palpitation yesterday, happened while he was at wound care clinic.Patient denied any shortness of breath , dizziness/lightheadedness, diaphoresis during the episode.Patient was initially started on Cardizem drip in the ER currently he has been transitioned to p.o. Cardizem, has converted to sinus rhythm. Currently being managed for: Assessment: Newly diagnosed A. Flutter with RVR History of aortic stenosis History of hypothyroidism History of peripheral vascular History of asthma History of ulcerative colitis History of ADHD Plan: Follow 2D echo TSH: 4.87 proBNP 880 HbA1c :5.4 Continue Cardizem 120mg p.o. daily Monitor electrolytes : K>4 ,MG>2 Continue Lovenox for therapeutic anticoagulation for now, will switch to oral anticoagulant on discharge Continue aspirin and statin Continue levothyroxine On chronic balsalazide On modafinil DVT prophylaxis: Not needed on therapeutic Lovenox Full code Attestations Medical Necessity Statement*: Patient is still in hospital for management of newly diagnosed a flutter with RVR. Coding Level of Care Code Acute Electronics Production Supervisor for [facility] Fwd Exam Expanded Problem Focused Diagnoses Chest pain R07.89 Chest pain type: other chest pain Atrial flutter with rapid ventricular response I48.92 Aortic valve stenosis I35.0 Cardiac valve disease etiology: etiology unspecified Hypothyroidism E03.9 Hypothyroidism type: acquired Hyperlipidemia E78.2 Hyperlipidemia type: mixed hyperlipidemia Wound of left lower extremity S81.802A Peripheral vascular disease I73.9 Ulcerative colitis K51.90 Digestive disease complication type: without complication Ulcerative colitis location: unspecified ulcerative colitis location ADHD F90.9 Asthma J45.909
[2022-08-29] MEDS: dilTIAZem ER (24HR) 120 mg Capsule PO (14:13)
[2022-08-29] MEDS: docusate sodium 100 mg Capsule PO (17:46)
[2022-08-30] VITALS (8 sets, daily range): BP systolic 130–156; BP diastolic 59–72; PULSE 61–70; RESP 12–19; TEMP 36.5–36.8; O2SAT 95–98
[2022-08-30] MEDS: aspirin 81 mg EC Tablet PO (03:35)
[2022-08-30] MEDS: levothyroxine 137 mcg Tablet PO (03:35)
[2022-08-30] MEDS: atorvastatin 40 mg Tablet 20 MG PO (03:35)
[2022-08-30] MEDS: enoxaparin 120 mg/0.8 mL Syringe 110 MG SUBCUT ×2 (03:36→17:29)
[2022-08-30 04:33] LABS: Basophils # 0.1 10^3/uL (0.0-0.1); Basophils % 0.8 %; Eosinophils # 0.3 10^3/uL (0.0-0.8); Eosinophils % 3.4 %; Hematocrit 41.3 % (42.0-52.0); Hemoglobin 13.2 g/dL (11.7-16.6); Lymphocytes # 2.2 10^3/uL (0.8-4.8); Lymphocytes % 30.2 %; Mean Corpuscular Hemoglobin 30.3 pg (28.0-34.0); Mean Corpuscular Volume 94.9 fl (80-94); Mean Platelet Volume 9.1 fL (7.4-10.4); Monocytes # 0.7 10^3/uL (0.2-0.9); Monocytes % 9.3 %; Neutrophils # 4.07 10^3/uL (1.8-7.7); Nucleated Red Blood Cells % 0 %; Platelet Count 239 10^3/cmm (130-400); Red Blood Count 4.35 10^6/uL (4.1-5.3); Red Cell Distribution Width 14.1 % (12.1-15.1); White Blood Count 7.3 10^3/uL (4.0-10.0)
[2022-08-30 05:13] LABS: Anion Gap 13.3 (5-19); Blood Urea Nitrogen 19 mg/dL (8-23); Calcium 9.1 mg/dL (8.5-10.5); Carbon Dioxide 28 mmol/L (22-29); Chloride 103 mmol/L (98-107); Glucose 97 mg/dL (65-115); Osmolality Calculated 292 mOsm/kg (285-295); Potassium 4.3 mmol/L (3.5-5.1); Sodium 140 mmol/L (136-145)
[2022-08-30] MEDS: dilTIAZem ER (24HR) 120 mg Capsule PO (07:53)
--- NOTE | 2022-08-30 10:07 | PM.CONSULT ---
Providers/Reason For Consult Consulting Physician/Specialty*: Dr. Douglas, Cardiology Reason for Consult*: Severe Attending Physician: Richard Kamara MD History of Present Illness History of Present Illness Clint Aguila is a 81 year old male who presented to the emergency room from wound care clinic due to report of some chest pain and tachycardia.? He has known chronic venous insufficiency and has had several sores to his left leg, known cardiac murmur, dyslipidemia and hypothyroidism.? He was also having some chest discomfort with radiation to both arms.? EMS was called and EKG showed atrial flutter with rapid ventricular response.? He has no history of coronary artery disease.? He denies recent dizziness or syncope.? He converted to SR and has remained in SR since then. No h/o CAD, PAD, prior cardiac interventions or stroke. He recently moved to the area and lives with his . Review of Systems General: Reports: 10 or more systems reviewed and unremarkable except in HPI and below Const: Reports: fatigue; Denies: fever(s) ENMT: Denies: throat pain Card: Reports: chest pain (resolved); Denies: palpitations, edema, syncope or orthopnea Resp: Reports: non-productive cough and chest congestion (Chronic rather than acute, more seasonal); Denies: pain on inspiration GI: Reports: constipation and change in bowel habits (Not soft like they usually are); Denies: abdominal pain, nausea, vomiting or hematochezia : Denies: change in urine stream Skin/Breast: Reports: sores; Denies: pruritus Neuro: Denies: headache(s), difficulty walking or dizziness Medications/Allergies Home Medications Medication Instructions Recorded Confirmed Last Taken Type Elderberry Gummies 1 cap PO DAILY 08/28/22 08/28/22 Unknown History acetaminophen 650 mg 1,300 mg PO BID 08/28/22 08/28/22 08/28/22 History tablet,extended release (Tylenol Arthritis Pain) ascorbic acid (vitamin C) 500 mg 1,500 mg PO DAILY 08/28/22 08/28/22 Unknown History chewable tablet (Vitamin C) aspirin 81 mg tablet,delayed 81 mg PO QAM 08/28/22 08/28/22 08/28/22 History release balsalazide 750 mg capsule 1,500 mg PO QAM 08/28/22 08/28/22 08/28/22 History cranberry extract 50 mg chewable 100 mg PO DAILY 08/28/22 08/28/22 Unknown History tablet levothyroxine 137 mcg tablet 137 mcg PO QAM 08/28/22 08/28/22 08/28/22 History modafinil 200 mg tablet 300 mg PO QAM 08/28/22 08/28/22 08/28/22 History naproxen 250 mg tablet 500 mg PO Q6H PRN Pain 08/28/22 08/28/22 08/28/22 History rosuvastatin 10 mg tablet 10 mg PO QAM 08/28/22 08/28/22 08/28/22 History Allergies Allergy/AdvReac Type Severity Reaction Status Date / Time chlorhexidine Allergy ALGY-Rash Verified 08/29/22 13:05 [From Eileen] Current Medications Generic Name Dose Route Start Last Admin Trade Name Freq PRN Reason Stop Dose Admin Aspirin 81 mg 08/29/22 06:00 08/30/22 03:35 Aspirin 81 Mg Ec Tablet PO 81 mg QAM SANTOS Administration Atorvastatin Calcium 20 mg 08/29/22 06:00 08/30/22 03:35 Atorvastatin 40 Mg Tablet PO 20 mg QAM SANTOS Administration Diltiazem HCl 120 mg 08/29/22 13:00 08/30/22 07:53 Diltiazem Er (24hr) 120 Mg Capsule PO 120 mg DAILY SANTOS Administration Docusate Sodium 100 mg 08/28/22 18:00 08/30/22 07:53 Docusate Sodium 100 Mg Capsule PO Not Given BID SANTOS Enoxaparin Sodium 110 mg 08/29/22 17:00 08/30/22 03:36 Enoxaparin 120 Mg/0.8 Ml Syringe SUBCUT 110 mg Q12H SANTOS Administration Diltiazem HCl 100 mg/ Sodium 100 mls @ 0 mls/hr 08/28/22 11:15 08/28/22 17:27 Chloride IV Infused .Q0M SANTOS Titration Protocol Per Protocol Potassium Chloride/Sodium Chloride 20 meq in 1,000 mls @ 75 mls/hr 08/28/22 16:00 08/29/22 05:36 Sodium Chlor 0.9% + Kcl 20 Meq IV 0 mls/hr .[id number] SANTOS Infusion Levothyroxine Sodium 137 mcg 08/29/22 06:00 08/30/22 03:35 Levothyroxine 137 Mcg Tablet PO 137 mcg QAM SANTOS Administration Non-Formulary Medication 1,500 mg 08/29/22 06:00 08/30/22 01:30 Balsalazide PO Not Given QAM SANTOS Non-Formulary Medication 300 mg 08/29/22 06:00 08/30/22 01:30 Modafinil PO Not Given QAM SANTOS PFSH Acute PFSH: Medical History ADHD on modafinil Aortic valve stenosis Asthma Blood donor Erectile dysfunction History of blood clots in arm Hyperlipidemia Hypothyroidism Osteoarthritis Peripheral vascular disease Ulcerative colitis on balsalazide 2 tabs per day Surgical History History of arthroscopy of left knee History of hand surgery left History of left inguinal hernia repair History of prior ablation treatment venous ablation to both lower extremities History of right inguinal hernia repair History of total left knee replacement Family History Mother , age 96 Leukemia Father , age 95 CHF (congestive heart failure) Denies family history of Clotting disorder Atrial fibrillation Stroke Social History Smoking and tobacco status: former smoker Alcohol intake: never Substance/Drug Use: never Marital status: Vitals/I&O/Wt Last Vital Signs Temp 97.9 F 08/30/22 07:40 Pulse 67 08/30/22 07:40 Resp 19 H 08/30/22 07:40 BP 143/72 08/30/22 07:40 Pulse Ox 97 08/30/22 07:40 O2 Del Method 08/30/22 07:40 O2 Flow Rate 2 08/30/22 03:16 08/29/22 08/30/22 08/30/22 22:59 06:59 14:59 Intake Total 240 / 600 Output Total 775 / 775 1800 / 2575 200 / 200 Balance -535 / -175 -1800 / -1975 -200 / -200 Weight last 48 hrs Weight 237 lb 4 oz Weight 240 lb Physical Exam Narrative: GENERAL: Averagely built and averagely nourished in no acute distress HEENT: Extraocular movement intact. No pallor or icterus. NECK: central trachea, No JVD, No carotid bruit. CARDIOVASCULAR SYSTEM: S1-S2 regular. Grade 3/6 harsh systolic murmur in aortic area and LLSB RESPIRATORY SYSTEM: Chest clear to auscultation. No wheezes rhonchi or rubs heard. ABDOMEN: Soft, nontender and nondistended. Normal bowel sounds present. EXTREMITIES: No cyanosis or edema. No signs of chronic venous insufficiency. SOAKER HELPER: Patient is alert oriented ?3. No focal neurological deficits. SKIN: Normal turgor and temperature. PSYCH: Normal insight and judgment. Data 08/30/22 04:12 08/30/22 04:12 Other data: TTE (08/28/22) CONCLUSIONS ?Technically limited quality echocardiogram because of poor ?ultrasonic windows. ?LV systolic function is normal with EF 55 to 60%. ?Moderate concentric hypertrophy is seen. ?Diastolic function is abnormal ?Moderate mitral annular calcification is seen.? Thickened mitral ?valve. ?Moderate to severe calcification of aortic valve.? Moderate ?aortic regurgitation ?Severe aortic stenosis with aortic valve area of 0.6 cm squared and ?mean gradient across aortic valve of 37.5 mmHg. ?Trace tricuspid regurgitation. ?No comparison studies are available A&P Assessment and plan (1) Atrial flutter with rapid ventricular response: remains in SR [id number]=3/9 , 2 for age and 1 for HTN -continue lovenox and cardizem (2) Aortic valve stenosis: Severe (JULIANA 0.5 cm2 and MG 38 mm Hg) -will proceed with [facility] to assess his coronary anatomy -will send for TAVR evaluation as an outpatient Qualifiers: Cardiac valve disease etiology: etiology unspecified Qualified Code(s): I35.0 - Nonrheumatic aortic (valve) stenosis (3) Hyperlipidemia: Qualifiers: Hyperlipidemia type: mixed hyperlipidemia Qualified Code(s): E78.2 - Mixed hyperlipidemia (4) Hypothyroidism: Qualifiers: Hypothyroidism type: acquired Qualified Code(s): E03.9 - Hypothyroidism, unspecified Plan B/L LE wound 2/2 venous insufficiency by history H/o asthma ADHD H/O ulcerative colitis Consult Attestations Medical Necessity Statement: Needs hospital stay for [facility] Time Spent in Patient Care: Greater than 35 minutes Coding Level of Care Code Acute Truss Assembler for [facility] Fwd Diagnoses Atrial flutter with rapid ventricular response I48.92 Aortic valve stenosis I35.0 Cardiac valve disease etiology: etiology unspecified Hyperlipidemia E78.2 Hyperlipidemia type: mixed hyperlipidemia Hypothyroidism E03.9 Hypothyroidism type: acquired
--- NOTE | 2022-08-30 10:44 | PC.CHAP ---
Pastoral Care Encounter/Spiritual Assessment Type of Contact [] Declined licensed embalmer visit [] Patient/Family/Request visit [] Outpatient visit [] Follow-up visit [] Physician referral [] Code/Alert [x] Routine visit [] Staff referral [] Actively dying [] Patient sleeping [] Family support [] [] Out of room [] Palliative care [] [x] Receiving care in room [] Pre-surgical visit [] Trauma [] Long length of stay [] ICU visit [] Other: Relational/Emotional Strength [x] Patient feels connected with others/family/visitors/staff [] Distress [] Loneliness/isolation [] Abandonment Spirituality of Patient [x] Person of Yari [] Attends Jain of their Yari [] Believes in Prayer [] Reads Bible or Yazidi materials [] There are Spiritual issues to be addressed Rotary Rig Engine Operator Interventions [x] Prayer [x] Active listening [x] Non-anxious presence [x] Spiritual/emotional support [] Crisis/trauma care [x] Spiritual counseling [] Bereavement support [] Provided bereavement packet [] Provided Bible/devotional materials [] Provided toy/stuffed animal, coloring book to patient or family member [] Provided Communion [] Anointing/[place] [] Salvation [x] Completed spiritual assessment [] Other: Impact on Illness or Injury [] Angry [] Fearful [] Anxious [] Often cries [] Exhaustion [] Unable to work [] Unable to attend congregation [] Unable to walk/stand [] Unable to read [] Unable to drive [] Unable to eat/drink [] Unable to sleep [] Unable to be with family [] Patient intubated [] Other: Summary heart some chest pain waiting on doctor doesn't know what needs to be done has a good attitude well go home Time spent with patient 10 mins
--- NOTE | 2022-08-30 11:20 | PM.PN ---
Subjective Subjective: Patient was seen and examined this morning continue to be in sinus rhythm, heart rate well controlled, Medications: Medication Review Details: Generic Name Dose Route Start Last Admin Trade Name Terrie PRN Reason Stop Dose Admin Aspirin 81 mg 08/29/22 06:00 08/30/22 03:35 Aspirin 81 Mg Ec Tablet PO 81 mg QAM SANTOS Administration Atorvastatin Calci um 20 mg 08/29/22 06:00 08/30/22 03:35 Atorvastatin 40 Mg Tablet PO 20 mg QAM SANTOS Administration Diltiazem HCl 120 mg 08/29/22 13:00 08/30/22 07:53 Diltiazem Er (24 hr) 120 Mg Capsule PO 120 mg DAILY SANTOS Administration Docusate Sodium 100 mg 08/28/22 18:00 08/30/22 07:53 Docusate Sodium 100 Mg Capsule PO Not Given BID SANTOS Enoxaparin Sodium 110 mg 08/29/22 17:00 08/30/22 03:36 Enoxaparin 120 M g/0.8 Ml Syringe SUBCUT 110 mg Q12H SANTOS Administration Diltiazem HCl 100 mg/ Sodium 100 mls @ 0 mls/h r 08/28/22 11:15 08/28/22 17:27 Chloride IV Infused .Q0M SANTOS Titration Protocol Per Protocol Potassium Chloride /Sodium Chloride 20 meq in 1,000 m ls @ 75 mls/hr 08/28/22 16:00 08/29/22 05:36 Sodium Chlor 0.9 % + Kcl 20 Meq IV 0 mls/hr .[id number] SANTOS Infusion Levothyroxine Sodi um 137 mcg 08/29/22 06:00 08/30/22 03:35 Levothyroxine 13 7 Mcg Tablet PO 137 mcg QAM SANTOS Administration Non-Formulary Medi cation 1,500 mg 08/29/22 06:00 08/30/22 01:30 Balsalazide PO Not Given QAM SANTOS Non-Formulary Medi cation 300 mg 08/29/22 06:00 08/30/22 01:30 Modafinil PO Not Given QAM SANTOS Vitals/I&O/Wt Last Vital Signs Temp 97.9 F 08/30/22 07:40 Pulse 67 08/30/22 07:40 Resp 19 H 08/30/22 07:40 BP 143/72 08/30/22 07:40 Pulse Ox 97 08/30/22 07:40 O2 Del Method 08/30/22 07:40 O2 Flow Rate 2 08/30/22 03:16 08/29/22 08/30/22 08/30/22 22:59 06:59 14:59 Intake Total 240 / 600 Output Total 775 / 775 1800 / 2575 1175 / 1175 Balance -535 / -175 -1800 / -1975 -1175 / -1175 Weight last 48 hrs Weight 107.615 kg Physical Exam Cardio: COMMON NORMALS: regular rate, regular rhythm, S1 normal heart sound present and S2 normal heart sound present RATE: regular rate RHYTHM: regular rhythm HEART SOUNDS: S1 normal heart sound present and S2 normal heart sound present OTHER: ESM in aortic area GI: COMMON NORMALS: Normal to inspection, nondistended, normoactive bowel sounds present, Soft to palpation, non-tender, No hepatosplenomegaly present and no masses AUSCULTATION: Yes normoactive bowel sounds PALPATION: Yes Soft to palpation and Yes No hepatosplenomegaly present RECTAL EXAM: Yes deferred Extremity: COMMON NORMALS: no clubbing, cyanosis or edema and no pedal edema Data 08/30/22 04:12 08/30/22 04:12 A&P Assessment and plan (1) Chest pain: Predominantly noted in both upper arms, transient Qualifiers: Chest pain type: other chest pain Qualified Code(s): R07.89 - Other chest pain (2) Atrial flutter with rapid ventricular response: Newly found, minimal if any symptoms, onset unclear though could have coincided with arm pain onset. No known history of coronary artery disease though does have peripheral vascular disease requiring venous intervention. Has hyperlipidemia. Patient has a known history of aortic stenosis and hypothyroidism. Has had difficulty with sleep lately. Remote diagnosis of asthma which has not been causing him issues lately. Does not appear acutely ill from viral or bacterial infectious source. No pleuritic chest pain nor hypoxemia. Does have some facial vasculature that makes me wonder about sleep apnea or pulmonary hypertension. No history of alcohol use and in fact reports that he does not tolerate much at all. No recent medication changes. (3) Aortic valve stenosis: Valve area unknown but longstanding diagnosis Qualifiers: Cardiac valve disease etiology: etiology unspecified Qualified Code(s): I35.0 - Nonrheumatic aortic (valve) stenosis (4) Hypothyroidism: On chronic levothyroxine Qualifiers: Hypothyroidism type: acquired Qualified Code(s): E03.9 - Hypothyroidism, unspecified (5) Hyperlipidemia: On chronic statin therapy Qualifiers: Hyperlipidemia type: mixed hyperlipidemia Qualified Code(s): E78.2 - Mixed hyperlipidemia (6) Wound of left lower extremity: Follows at wound care clinic, several small stasis wounds (7) Peripheral vascular disease: On chronic aspirin therapy (8) Ulcerative colitis: On chronic balsalazide, no recent bleeding though has had recent change in stools with constipation Qualifiers: Digestive disease complication type: without complication Ulcerative colitis location: unspecified ulcerative colitis location Qualified Code(s): K51.90 - Ulcerative colitis, unspecified, without complications (9) ADHD: On chronic modafinil (10) Asthma: Chronic diagnosis but generally no longer having symptoms Plan 81-year-old male with past medical history of aortic valve stenosis, asthma , hypothyroidism, peripheral vascular disease was brought in with chief complaint of chest pain predominantly bilateral arm pain during the episode of palpitation yesterday, happened while he was at wound care clinic.Patient denied any shortness of breath , dizziness/lightheadedness, diaphoresis during the episode.Patient was initially started on Cardizem drip in the ER currently he has been transitioned to p.o. Cardizem, has converted to sinus rhythm. Currently being managed for: Assessment: Newly diagnosed A. Flutter with RVR History of aortic stenosis History of hypothyroidism History of peripheral vascular History of asthma History of ulcerative colitis History of ADHD Plan: 2D echo: LV systolic function is normal with EF 55 to 60%. ?Moderate concentric hypertrophy is seen. ?Diastolic function is abnormal ?Moderate mitral annular calcification is seen.Thickened mitral ?valve. ?Moderate to severe calcification of aortic valve.? Moderate aortic regurgitation Severe aortic stenosis with aortic valve area of 0.6 cm squared and ?mean gradient across aortic valve of 37.5 mmHg. ?Trace tricuspid regurgitation. TSH: 4.87 proBNP 880 HbA1c :5.4 Continue Cardizem 120mg p.o. daily Monitor electrolytes : K>4 ,MG>2 Continue Lovenox for therapeutic anticoagulation for now, will switch to oral anticoagulant on discharge Continue aspirin and statin Continue levothyroxine On chronic balsalazide On modafinil Cardiology has been consulted for severe aortic stenosis DVT prophylaxis: Not needed on therapeutic Lovenox Full code Attestations Medical Necessity Statement*: Patient is still in hospital for management of severe arctic stenosis A. fib chest pain. Coding Level of Care Code Acute Manager Managing for Chg Fwd Exam Expanded Problem Focused Diagnoses Chest pain R07.89 Chest pain type: other chest pain Atrial flutter with rapid ventricular response I48.92 Aortic valve stenosis I35.0 Cardiac valve disease etiology: etiology unspecified Hypothyroidism E03.9 Hypothyroidism type: acquired Hyperlipidemia E78.2 Hyperlipidemia type: mixed hyperlipidemia Wound of left lower extremity S81.802A Peripheral vascular disease I73.9 Ulcerative colitis K51.90 Digestive disease complication type: without complication Ulcerative colitis location: unspecified ulcerative colitis location ADHD F90.9 Asthma J45.909
[2022-08-30 22:24] LABS: Hepatitis B Core AB, Total Non-Reactive (Nonreactive); Hepatitis B Surface AB 3.5 (11.5-1000); Hepatitis B Surface Antigen Non-Reactive (Nonreactive)
[2022-08-31] VITALS (31 sets, daily range): BP systolic 107–162; BP diastolic 45–71; PULSE 59–72; RESP 9–29; TEMP 36.4–36.7; O2SAT 94–99
[2022-08-31] MEDS: enoxaparin 120 mg/0.8 mL Syringe 110 MG SUBCUT (04:43)
[2022-08-31] MEDS: levothyroxine 137 mcg Tablet PO (05:53)
[2022-08-31] MEDS: atorvastatin 40 mg Tablet 20 MG PO (05:53)
[2022-08-31] MEDS: aspirin 81 mg EC Tablet PO (05:53)
[2022-08-31] MEDS: dilTIAZem ER (24HR) 120 mg Capsule PO (09:15)
[2022-08-31] MEDS: sodium chloride 0.9% 1,000 ML 50 ML IV (12:15)
[2022-08-31] MEDS: diphenhydrAMINE 50 mg Capsule PO (12:15)
--- NOTE | 2022-08-31 13:14 | XACV_ITS ---
Exam Room: [facility] Ht: 183 cm Wt: 108 kg BSA: 2.37 m2 Gender: Male : 1940 Exam Priority: Routine Procedure(s): Procedure Description: Diagnostic procedure Procedure Description: Right Heart Catheterization Procedure Description: Coronary Angiography Diagnostic Cath Status: Elective Diagnostic Findings * Coronary angiography shows right dominance. * No disease noted in the Left Main artery. * Medium calibre circumflex artery with 20% stenosis in proximal circumflex. * Small to medium calibre left anterior descending artery with 30% stenosis in mid segment. * Medium calibre right coronary artery with minor luminal irregularities. Conclusions 1. Mild non obstructive coronary artery disease. 2. Pulmonary artery pressures are upper normal 36/15, mean PAP 23 mm Hg. 3. Pulmonary artery wedge pressures are mildly elevated at 19 mm Hg. Recommendations * Return to inpatient for close monitoring and routine cath care. * Continue current medical management and risk factor modification. Pressures Phase:Rest AO : 135 / 60 ( 89 ) @ 1:55:00 PM RV : 42 / 0 / 10 @ 1:45:00 PM 43 / 1 / 10 @ 1:45:00 PM PA : 36 / 15 ( 23 ) @ 1:41:00 PM RA : a wave = 11 v wave = 10 mean = 8 @ 1:48:00 PM PCW : a wave = 20 v wave = 24 mean = 19 @ 1:44:00 PM Hemodynamic Findings Right atrial pressures are normal at 8 mm Hg. Right ventricular pressures are normal at 10 mm Hg. Pulmonary artery pressures are upper normal 36/15, mean PAP 23 mm Hg. Pulmonary artery wedge pressures are mildly elevated at 19 mm Hg. Aortic valve not crossed. Cardiac output by Neal method is normal at 5.4 L/min. Cardiac Index 2.30 l/min/m2. O2 Content Phase:Rest PA : O2 Content O2: 66.3 @ 1:48:00 PM Saturations Phase:Rest AO : 93 @ 1:55:00 PM RA : 64 @ 1:44:00 PM RV : 63 @ 1:41:00 PM PA : 66 @ 1:48:00 PM Clinical Evaluation EBL: 5mL-10mL Procedural Details Procedure Consent Obtained. Pre-Procedure Time Out. Identified patient by full name and date of as verbalized by the patient/guarantor. Does the consent match the physician's order: Yes. Accurate & Complete Informed Consent: Yes. Inpatient/Outpatient History & Physical on Chart: Yes. If H&P is completed, is and addenduem needed: No; If yes, is the addendum complete: N/A. Visualize and Verify Site with Patient/Guarantor: N/A. Relevant Radiology Images available: N/A. The risks, benefits, and alternatives of sedation and/or procedure were discussed by physician. The patient agrees to continue. Procedure started. [facility] Clinical Fraility Score: 4: Vulnerable. Chief Analytics Officer Indications: Valvular Disease. Severe aortic stenosis. Chest Pain Symptom Assessment: Atypical Angina. Cardiovascular Instability: No,. Correct patient, site and procedure confirmed by cath team. Current diagnosis: Chest Pain. PERRLA. Strong, equal hand devops consultant bilaterally. Lungs clear x 5 lobes. IV Site on Arrival: 20 gauge in the right anticubital. IV Site on Arrival: 20 gauge in the left forearm. IV Fluids: 0.9% NaCl at KVO. 0 mL infused prior to label machine operator. Pre Procedural Pulses: right radial was 2+. Pre Procedural Pulses: bilateral dorsalis pedis was 1+. Oxygen started at 2liters/min via nasal canula. right groin was prepped with chloroprep then draped in the usual sterile fashion. right radial was prepped with chloroprep then draped in the usual sterile fashion. Physician notified. Baseline sample Acquired. HR: 68 BPM. Physician arrived. Admit Source: In Patient. Physician scrubbed in. Immediate Pre-Procedure Time Out. Correct Patient: Yes; Correct Procedure: Yes; Correct Site: Yes; Correct Patient Position: Yes; Correct Supplies: Yes; Dried Flammable Prep: Yes; Blood Products Available: N/A;. Lidocaine 1% infiltrated to the right brachial. Dawson-Tracie MON catheter inserted. Oximetry samples were obtained. Normal venous range: 60-85%. Normal arterial range: 95-100%. Pressure measurements obtained. ABG drawn and sent with respiratory therapy. Dawson-Tracie out. Lidocaine 1% infiltrated to the right radial. Arterial access obtained. A 5 sami TIG catheter in over wire. Multiple views taken of left coronary artery. Catheter redirected to the RCA. Catheter removed over the standard wire. A 5 sami JR4 catheter in over wire. Multiple views taken of right coronary artery. Catheter out. A TR Band was successful obtaining hemostatsis at the Right Radial artery insertion site. A Manual Compression was successful obtaining hemostatsis at the Right Brachial Vein insertion site. PERRLA. Strong, equal hand devops consultant bilaterally. No VTE prophylaxis required. Medication's Wasted: Lidocaine 1% = 3 mL. Medication's Wasted: Nitro = 49.8 mg. Medication's Wasted: Heparin = 1000 units. Medication's Wasted: Other = 50 mcg fentanyl. Total IV fluids: 55 mL. Post-op diagnosis: non-obstructive CAD. Complications: none. Estimated blood loss: 5mL-10mL. Responsiveness - Normal response to verbal stimuli; alert and oriented, PERRLA. Airway - Unaffected, no intervention required; spontaneous ventilation. Circulation: W/N/L, pulses unchanged. Nausea/Vomiting: No. Procedure completed. Patient transferred by bed to 1st floor. Vital chart was stopped. Access Site Site: Right Brachial Vein Sheath Size: 6 Fr Hemostasis Method: Manual Compression Hemostasis Success: Successful Site: Right Radial artery Sheath Size: 6 Fr Hemostasis Method: TR Band Hemostasis Success: Successful Procedure Medications Start: 1:38 PM Stop: 1:38 PM Medication: Versed Amount: 1 mg Route: I.V. Start: 1:39 PM Stop: 1:39 PM Medication: Versed 1 mg and Fentanyl 25 mcg Amount: 1 Route: I.V. Start: 1:53 PM Stop: 1:53 PM Medication: Nitrogylcerin Amount: 200 mcg Route: I.A. Start: 2:04 PM Stop: 2:04 PM Medication: Versed Amount: 1 mg Route: I.V. I, the attending physician, have reviewed and verified all procedure medications. Yes, all medications given per verbal order History/Risk Factors Hypertension: No Dyslipidemia: Yes Peripheral Arterial Disease (PAD): Yes Myocardial Infarction ([place]): No Obesity: No Tobacco Use: Former Prior Interventions PCI: No CABG: No Valve Surgery: No Report Signatures Finalized by Noreen Douglas MD on 09/12/2022 04:47 PM
--- NOTE | 2022-08-31 13:31 | W.PM.OPSUD ---
Surgery/Procedure H&P Update DATE OF PROCEDURE: August 31, 2022 DATE H&P PERFORMED: 08/30/22 H&P UPDATE INFORMATION: I have reviewed H&P completed within last 30 days, I have examined patient prior to procedure, No changes to prior documentation and Changes to prior documentation as noted here PREOP DIAGNOSIS: Severe PRIMARY INDICATION FOR PROCEDURE: Severe PLANNED PROCEDURE: Operation Date: 08/31/22 13:35 Proposed Procedures p Cardiac Catheterization(Bilateral) - Noreen Douglas MD PATIENT REASSESSED PRIOR TO SEDATION, WITH NO CHANGE NOTED: Yes PHYSICAL EXAM: alert, oriented x 3, clear to auscultation bilaterally and regular rate & rhythm AIRWAY EVAL/ANESTHESIA PLAN: normal airway, ASA III, Monitored Anesthesia, Local Anesthesia, Risks, benefits & alternatives of sedation and/or procedure discussed and Patient agrees to continue as planned
--- NOTE | 2022-08-31 13:59 | PC.NURSE ---
to medical lab technician
[2022-08-31 14:00] LABS: Alveolar-Arterial Oxygen Gradi 4.5 mmHg (5-10); Arterial Blood Gas Hematocrit 36.9 % (42-52); Blood Gas Operator Identificat AO; Blood Gas Sample Site Not specified; Blood Gas Sample Type Arterial; Carboxyhemoglobin 1.3 %THgb (0.4-20.1); HGB O2 Sat 91.2 % (95-100); Methemoglobin 0.9 % (0.4-1.5)
[2022-08-31 14:01] LABS: Alveolar-Arterial Oxygen Gradi 8.5 mmHg (5-10); Arterial Blood Gas Hematocrit 22.4 % (42-52); Blood Gas Operator Identificat RA; Blood Gas Sample Site Not specified; Blood Gas Sample Type Arterial; Carboxyhemoglobin 1.5 %THgb (0.4-20.1); HGB O2 Sat 61.9 % (95-100); Methemoglobin 1.4 % (0.4-1.5); Oxygen Device ROOM AIR; Total Hemoglobin 7.3 g/dL (14-18)
[2022-08-31 14:02] LABS: Oxygen Device ROOM AIR
[2022-08-31 14:03] LABS: Alveolar-Arterial Oxygen Gradi 7.7 mmHg (5-10); Arterial Blood Gas Hematocrit 29.6 % (42-52); Blood Gas Sample Site Not specified; Blood Gas Sample Type Arterial; Carboxyhemoglobin 1.4 %THgb (0.4-20.1); HGB O2 Sat 60.9 % (95-100); Methemoglobin 1.1 % (0.4-1.5); Total Hemoglobin 9.7 g/dL (14-18)
[2022-08-31 14:04] LABS: Alveolar-Arterial Oxygen Gradi 8.2 mmHg (5-10); Blood Gas Sample Site Not specified; Blood Gas Sample Type Arterial; Carboxyhemoglobin 2.2 %THgb (0.4-20.1); HGB O2 Sat 66.3 % (95-100); Methemoglobin 1.8 % (0.4-1.5); Total Hemoglobin < 4.5 g/dL (14-18)
[2022-08-31 14:05] LABS: Blood Gas Operator Identificat PA
[2022-08-31 14:07] LABS: Blood Gas Operator Identificat RV; Oxygen Device ROOM AIR
[2022-08-31 14:08] LABS: Oxygen Device ROOM AIR
--- NOTE | 2022-08-31 14:17 | P.PN_ITS ---
Subjective Subjective: He underwent LHC today and was found to have mild to moderate LAD disease. No obstructive disease. Medications: Reviewed: Yes Vitals/I&O/Wt Last Vital Signs Temp 97.7 F 08/31/22 07:27 Pulse 64 08/31/22 12:03 Resp 16 08/31/22 12:03 BP 152/70 08/31/22 12:03 Pulse Ox 95 08/31/22 12:03 O2 Del Method 08/31/22 04:00 O2 Flow Rate 2 08/31/22 00:00 08/30/22 08/31/22 08/31/22 22:59 06:59 14:59 Intake Total 440 / 560 240 / 240 Output Total 525 / 1700 950 / 2650 900 / 900 Balance -85 / -1140 -950 / -2090 -660 / -660 Physical Exam Narrative: GENERAL: Averagely built and averagely nourished in no acute distress HEENT: Extraocular movement intact. No pallor or icterus. NECK: central trachea, No JVD, No carotid bruit. CARDIOVASCULAR SYSTEM: S1-S2 regular. Grade 3/6 harsh systolic murmur in aortic area and LLSB RESPIRATORY SYSTEM: Chest clear to auscultation. No wheezes rhonchi or rubs hea rd. ABDOMEN: Soft, nontender and nondistended. Normal bowel sounds present. EXTREMITIES: No cyanosis or edema. No signs of chronic venous insufficiency. POTASH FLAKER: Patient is alert oriented ?3. No focal neurological deficits. SKIN: Normal turgor and temperature. PSYCH: Normal insight and judgment. Data 08/30/22 04:12 08/30/22 04:12 A&P Assessment and plan (1) Aortic valve stenosis: Severe (JULIANA 0.5 cm2 and MG 38 mm Hg) -Non obstructive CAD on [facility] -will send for TAVR evaluation as an outpatient next week. -f/u in 1 month with Wendy Leon. Qualifiers: Cardiac valve disease etiology: etiology unspecified Qualified Code(s): I35.0 - Nonrheumatic aortic (valve) stenosis (2) Atrial flutter with rapid ventricular response: Paroxysmal atrial flutter remains in SR [id number]=1/9 , 2 for age and 1 for HTN -transition to Eliquis 5 mg BID and cardizem (3) Hyperlipidemia: Qualifiers: Hyperlipidemia type: mixed hyperlipidemia Qualified Code(s): E78.2 - Mixed hyperlipidemia (4) Hypothyroidism: Qualifiers: Hypothyroidism type: acquired Qualified Code(s): E03.9 - Hypothyroidism, unspecified Plan B/L LE wound 2/2 venous insufficiency by history H/o asthma ADHD H/O ulcerative colitis Attestations Medical Necessity Statement*: stable to be discharged later today. Time Spent in Patient Care: 16 - 35 minutes Coding Level of Care Code Acute Legal Cashier for [facility] Fwd Diagnoses Aortic valve stenosis I35.0 Cardiac valve disease etiology: etiology unspecified Atrial flutter with rapid ventricular response I48.92 Hyperlipidemia E78.2 Hyperlipidemia type: mixed hyperlipidemia Hypothyroidism E03.9 Hypothyroidism type: acquired
--- NOTE | 2022-08-31 18:21 | P.PN_ITS ---
Subjective Subjective: Patient was seen and examined this morning continue to be in sinus rhythm, heart rate well controlled, Medications: Reviewed: Yes Medication Review Details: Generic Name Dose Route Start Last Admin Trade Name Terrie PRN Reason Stop Dose Admin Aspirin 81 mg 08/29/22 06:00 08/31/22 05:53 Aspirin 81 Mg Ec Tablet PO 81 mg QAM SANTOS Administration Atorvastatin Calci um 20 mg 08/29/22 06:00 08/31/22 05:53 Atorvastatin 40 Mg Tablet PO 20 mg QAM SANTOS Administration Diltiazem HCl 120 mg 08/29/22 13:00 08/31/22 09:15 Diltiazem Er (24 hr) 120 Mg Capsule PO 120 mg DAILY SANTOS Administration Docusate Sodium 100 mg 08/28/22 18:00 08/31/22 16:02 Docusate Sodium 100 Mg Capsule PO Not Given BID SANTOS Enoxaparin Sodium 110 mg 08/29/22 17:00 08/31/22 16:02 Enoxaparin 120 M g/0.8 Ml Syringe SUBCUT Not Given Q12H SANTOS Sodium Chloride 1,000 mls @ 50 ml s/hr 08/31/22 12:00 08/31/22 12:15 Sodium Chloride 0.9% IV 09/01/22 07:59 50 mls/hr .Q20H ONE Administration Levothyroxine Sodi um 137 mcg 08/29/22 06:00 08/31/22 05:53 Levothyroxine 13 7 Mcg Tablet PO 137 mcg QAM SANTOS Administration Non-Formulary Medi cation 1,500 mg 08/29/22 06:00 08/31/22 05:44 Balsalazide PO Not Given QAM SANTOS Non-Formulary Medi cation 300 mg 08/29/22 06:00 08/31/22 05:54 Modafinil PO Not Given QAM SANTOS Vitals/I&O/Wt Last Vital Signs Temp 98.0 F 08/31/22 15:16 Pulse 63 08/31/22 15:38 Resp 20 H 08/31/22 15:16 BP 135/62 08/31/22 15:16 Pulse Ox 99 08/31/22 15:38 O2 Del Method 08/31/22 15:38 O2 Flow Rate 2 08/31/22 00:00 08/31/22 08/31/22 08/31/22 06:59 14:59 22:59 Intake Total 240 / 240 240 / 480 Output Total 950 / 2650 1500 / 1500 300 / 1800 Balance -950 / -2090 -1260 / -1260 -60 / -1320 Physical Exam Cardio: COMMON NORMALS: regular rate, regular rhythm, S1 normal heart sound present and S2 normal heart sound present RATE: regular rate RHYTHM: regular rhythm HEART SOUNDS: S1 normal heart sound present and S2 normal heart sound present OTHER: ESM in aortic area GI: COMMON NORMALS: Normal to inspection, nondistended, normoactive bowel sounds present, Soft to palpation, non-tender, No hepatosplenomegaly present and no masses AUSCULTATION: Yes normoactive bowel sounds PALPATION: Yes Soft to palpation and Yes No hepatosplenomegaly present RECTAL EXAM: Yes deferred Extremity: COMMON NORMALS: no clubbing, cyanosis or edema and no pedal edema Data 08/30/22 04:12 08/30/22 04:12 A&P Assessment and plan (1) Chest pain: Predominantly noted in both upper arms, transient Qualifiers: Chest pain type: other chest pain Qualified Code(s): R07.89 - Other chest pain (2) Atrial flutter with rapid ventricular response: Newly found, minimal if any symptoms, onset unclear though could have coincided with arm pain onset. No known history of coronary artery disease though does have peripheral vascular disease requiring venous intervention. Has h yperlipidemia. Patient has a known history of aortic stenosis and hypothyroidism. Has had difficulty with sleep lately. Remote diagnosis of asthma which has not been causing him issues lately. Does not appear acutely ill from viral or bacterial infectious source. No pleuritic chest pain nor hyp oxemia. Does have some facial vasculature that makes me wonder about sleep apnea or pulmonary hypertension. No history of alcohol use and in fact reports that he does not tolerate much at all. No recent medication changes. (3) Aortic valve stenosis: Valve area unknown but longstanding diagnosis Qualifiers: Cardiac valve disease etiology: etiology unspecified Qualified Code(s): I35.0 - Nonrheumatic aortic (valve) stenosis (4) Hypothyroidism: On chronic levothyroxine Qualifiers: Hypothyroidism type: acquired Qualified Code(s): E03.9 - Hypothyroidism, unspecified (5) Hyperlipidemia: On chronic statin therapy Qualifiers: Hyperlipidemia type: mixed hyperlipidemia Qualified Code(s): E78.2 - Mixed hyperlipidemia (6) Wound of left lower extremity: Follows at wound care clinic, several small stasis wounds (7) Peripheral vascular disease: On chronic aspirin therapy (8) Ulcerative colitis: On chronic balsalazide, no recent bleeding though has had recent change in stools with constipation Qualifiers: Ulcerative colitis location: unspecified ulcerative colitis location Digestive disease complication type: without complication Qualified Code(s): K51.90 - Ulcerative colitis, unspecified, without complications (9) ADHD: On chronic modafinil (10) Asthma: Chronic diagnosis but generally no longer having symptoms Plan 81-year-old male with past medical history of aortic valve stenosis, asthma , hypothyroidism, peripheral vascular disease was brought in with chief complaint of chest pain predominantly bilateral arm pain during the episode of palpitation yesterday, happened while he was at wound care clinic.Patient denied any shortness of breath , dizziness/lightheadedness, diaphoresis during the episode.Patient was initially started on Cardizem drip in the ER currently he has been transitioned to p.o. Cardizem, has converted to sinus rhythm. Currently being managed for: Assessment: Newly diagnosed A. Flutter with RVR History of aortic stenosis History of hypothyroidism History of peripheral vascular History of asthma History of ulcerative colitis History of ADHD Plan: 2D echo: LV systolic function is normal with EF 55 to 60%. ?Moderate concentric hypertrophy is seen. ?Diastolic function is abnormal ?Moderate mitral annular calcification is seen.Thickened mitral ?valve. ?Moderate to severe calcification of aortic valve.? Moderate aortic regurgitation Severe aortic stenosis with aortic valve area of 0.6 cm squared and ?mean gradient across aortic valve of 37.5 mmHg. ?Trace tricuspid regurgitation. TSH: 4.87 proBNP 880 HbA1c :5.4 Continue Cardizem 120mg p.o. daily Monitor electrolytes : K>4 ,MG>2 Continue Lovenox for therapeutic anticoagulation for now, will switch to oral anticoagulant on discharge Continue aspirin and statin Continue levothyroxine On chronic balsalazide On modafinil Cardiology has been consulted for severe aortic stenosis DVT prophylaxis: Not needed on therapeutic Lovenox Full code Coding Level of Care Code Acute Foreign Exchange Student Coordinator for g Fwd Diagnoses Chest pain R07.89 Chest pain type: other chest pain Atrial flutter with rapid ventricular response I48.92 Aortic valve stenosis I35.0 Cardiac valve disease etiology: etiology unspecified Hypothyroidism E03.9 Hypothyroidism type: acquired Hyperlipidemia E78.2 Hyperlipidemia type: mixed hyperlipidemia Wound of left lower extremity S81.802A Peripheral vascular disease I73.9 Ulcerative colitis K51.90 Ulcerative colitis location: unspecified ulcerative colitis location Digestive disease complication type: without complication ADHD F90.9 Asthma J45.909
--- NOTE | 2022-08-31 18:35 | PM.DCS ---
Discharge Providers Date of Admission: 08/29/22 20:20 Date of Discharge: August 31, 2022 Attending Provider at Admission: Teresita Menchaca MD Attending Provider at Discharge: Richard Kamara MD Diagnoses at Discharge Discharge Diagnosis (1) Chest pain: Status: Inactive Qualifiers: Chest pain type: other chest pain Qualified Code(s): R07.89 - Other chest pain (2) Atrial flutter with rapid ventricular response: Status: Inactive (3) Aortic valve stenosis: Status: Inactive Qualifiers: Cardiac valve disease etiology: etiology unspecified Qualified Code(s): I35.0 - Nonrheumatic aortic (valve) stenosis (4) Hypothyroidism: Status: Inactive Qualifiers: Hypothyroidism type: acquired Qualified Code(s): E03.9 - Hypothyroidism, unspecified (5) Hyperlipidemia: Status: Inactive Qualifiers: Hyperlipidemia type: mixed hyperlipidemia Qualified Code(s): E78.2 - Mixed hyperlipidemia (6) Wound of left lower extremity: Status: Inactive (7) Peripheral vascular disease: Status: Inactive (8) Ulcerative colitis: Status: Inactive Qualifiers: Digestive disease complication type: without complication Ulcerative colitis location: unspecified ulcerative colitis location Qualified Code(s): K51.90 - Ulcerative colitis, unspecified, without complications Permanent problem details: on balsalazide 2 tabs per day (9) ADHD: Status: Inactive Permanent problem details: on modafinil (10) Asthma: Status: Inactive Reason for Visit Reason for Visit: Chest Pain Hospital Course Hospital Course 81-year-old male with past medical history of aortic valve stenosis,? asthma , hypothyroidism, peripheral vascular disease was brought in with chief complaint of chest pain predominantly bilateral arm pain during the episode of palpitation yesterday, happened while he was at wound care clinic.He was admitted for management of newly diagnosed a flutter with RVR, initially was kept on Cardizem drip Nutilis transition to p.o. Cardizem, he was discharged on p.o. Cardizem 120 daily, as well as Eliquis, patient had converted to sinus rhythm during hospital stay. 2D echo done during the hospital showed: LV systolic function is normal with EF 55 to 60%. ?Moderate concentric hypertrophy is seen.Diastolic function is abnormal ?Moderate mitral annular calcification is seen.Thickened mitral ?valve. ?Moderate to severe calcification of aortic valve.? Moderate aortic regurgitation Severe aortic stenosis with aortic valve area of 0.6 cm squared and ?mean gradient across aortic valve of 37.5 mmHg. ?Trace tricuspid regurgitation. 2D echo showed severe aortic stenosis: Patient has known history of aortic stenosis: Patient underwent coronary angiogram during hospital stay: Which showed mild to moderate LAD disease. Overall patient has responded well to medical management and is currently being discharged stable condition to home.He will follow cardiology as an outpatient,current plan is to refer him to [place], for severe aortic stenosis management. Physical Exam Resp: COMMON NORMALS: normal respiratory effort, No retractions, No use of accessory muscles and clear to auscultation bilaterally EFFORT & INSPECTION: Yes symmetric chest movement AUSCULTATION: clear to auscultation bilaterally Cardio: COMMON NORMALS: regular rate, regular rhythm, S1 normal heart sound present, S2 normal heart sound present, No gallops present (Cardio), No murmurs present (Cardio), No rub (Cardio) and Peripheral pulses 2+ throughout RATE: regular rate RHYTHM: regular rhythm HEART SOUNDS: S1 normal heart sound present and S2 normal heart sound present PERIPHERAL PULSES: Peripheral pulses 2+ throughout GI: COMMON NORMALS: Normal to inspection, nondistended, normoactive bowel sounds present, Soft to palpation, non-tender, No hepatosplenomegaly present and no masses AUSCULTATION: Yes normoactive bowel sounds PALPATION: Yes Soft to palpation and Yes No hepatosplenomegaly present RECTAL EXAM: Yes deferred Extremity: COMMON NORMALS: no clubbing, cyanosis or edema and no pedal edema Discharge Data Studies Completed and Pending Completed Studies During Hospitalization Category Date Time Status XR chest 1V portable [id number] Stat Exams 08/28/22 11:10 Completed CV. echo complete* [id number] Routine Ultrasound 08/28/22 16:03 Completed Pending at discharge Category Date Time Status [employer] request for service Routine Exams 08/31/22 13:14 Taken ABG Coox Only Routine Lab 08/31/22 13:55 Results BMP [Basic Metabolic Panel] AM LABS Lab 09/01/22 04:00 Ordered CBC Auto Diff [Complete Blood Count w/Auto] AM LABS Lab 09/01/22 04:00 Ordered HIV RNA (PCR) Quant Routine Lab 08/30/22 19:46 Received Hepatitis C RNA Viral Load Qnt Urgent Lab 08/30/22 19:46 Received Radiology Impressions Chest X-Ray 08/28/22 11:10 IMPRESSION: No acute abnormality. Laboratory Results WBC 7.3 10^3/uL (4.0-10.0) 08/30/22 04:12 RBC 4.35 10^6/uL (4.1-5.3) 08/30/22 04:12 Hgb 13.2 g/dL (11.7-16.6) 08/30/22 04:12 Hct 41.3 % (42.0-52.0) L 08/30/22 04:12 MCV 94.9 fl (80-94) H 08/30/22 04:12 MCH 30.3 pg (28.0-34.0) 08/30/22 04:12 MCHC 32.0 g/dL (30.0-36.0) 08/30/22 04:12 RDW 14.1 % (12.1-15.1) 08/30/22 04:12 Plt Count 239 10^3/cmm (130-400) 08/30/22 04:12 MPV 9.1 fL (7.4-10.4) 08/30/22 04:12 Neut % (Auto) 56.0 % 08/30/22 04:12 Lymph % (Auto) 30.2 % 08/30/22 04:12 Early % (Auto) 9.3 % 08/30/22 04:12 Eos % (Auto) 3.4 % 08/30/22 04:12 Baso % (Auto) 0.8 % 08/30/22 04:12 Neut # (Auto) 4.07 10^3/uL (1.8-7.7) 08/30/22 04:12 Lymph # (Auto) 2.2 10^3/uL (0.8-4.8) 08/30/22 04:12 Early # (Auto) 0.7 10^3/uL (0.2-0.9) 08/30/22 04:12 Eos # (Auto) 0.3 10^3/uL (0.0-0.8) 08/30/22 04:12 Baso # (Auto) 0.1 10^3/uL (0.0-0.1) 08/30/22 04:12 Nucleated RBC % (auto) 0 % 08/30/22 04:12 Nucleated RBCs # 0.0 /100WBC 08/30/22 04:12 PT 13.00 SECONDS (12.1-14.9) 08/28/22 11:05 INR 0.96 (0.8-1.2) 08/28/22 11:05 APTT 30.1 SECONDS (23.9-36.7) 08/28/22 11:05 Specimen Type Arterial 08/31/22 13:55 Specimen Type Arterial 08/31/22 13:55 Specimen Type Arterial 08/31/22 13:55 Specimen Type Arterial 08/31/22 13:55 Sample Site Not specified 08/31/22 13:55 Sample Site Not specified 08/31/22 13:55 Sample Site Not specified 08/31/22 13:55 Sample Site Not specified 08/31/22 13:55 John Test N/a 08/31/22 13:55 John Test N/a 08/31/22 13:55 John Test N/a 08/31/22 13:55 John Test N/a 08/31/22 13:55 A-a O2 Gradient 4.5 mmHg (5-10) L 08/31/22 13:55 A-a O2 Gradient 7.7 mmHg (5-10) 08/31/22 13:55 A-a O2 Gradient 8.2 mmHg (5-10) 08/31/22 13:55 A-a O2 Gradient 8.5 mmHg (5-10) 08/31/22 13:55 Hematocrit 22.4 % (42-52) L 08/31/22 13:55 Hematocrit 29.6 % (42-52) L 08/31/22 13:55 Hematocrit 36.9 % (42-52) L 08/31/22 13:55 Hgb O2 Saturation 60.9 % (95-100) L 08/31/22 13:55 Hgb O2 Saturation 61.9 % (95-100) L 08/31/22 13:55 Hgb O2 Saturation 66.3 % (95-100) L 08/31/22 13:55 Hgb O2 Saturation 91.2 % (95-100) L 08/31/22 13:55 Carboxyhemoglobin 1.3 %THgb (0.4-20.1) 08/31/22 13:55 Carboxyhemoglobin 1.4 %THgb (0.4-20.1) 08/31/22 13:55 Carboxyhemoglobin 1.5 %THgb (0.4-20.1) 08/31/22 13:55 Carboxyhemoglobin 2.2 %THgb (0.4-20.1) 08/31/22 13:55 Methemoglobin 0.9 % (0.4-1.5) 08/31/22 13:55 Methemoglobin 1.1 % (0.4-1.5) 08/31/22 13:55 Methemoglobin 1.4 % (0.4-1.5) 08/31/22 13:55 Methemoglobin 1.8 % (0.4-1.5) H 08/31/22 13:55 Total Hemoglobin 7.3 g/dL (14-18) L 08/31/22 13:55 Total Hemoglobin 9.7 g/dL (14-18) L 08/31/22 13:55 Total Hemoglobin 12.0 g/dL (14-18) L 08/31/22 13:55 Total Hemoglobin < 4.5 g/dL (14-18) L 08/31/22 13:55 O2 Delivery Device Room air 08/31/22 13:55 O2 Delivery Device Room air 08/31/22 13:55 O2 Delivery Device Room air 08/31/22 13:55 O2 Delivery Device Room air 08/31/22 13:55 Lamina Searcher ID Ao 08/31/22 13:55 Lamina Searcher ID Pa 08/31/22 13:55 Lamina Searcher ID Ra 08/31/22 13:55 Lamina Searcher ID Rv 08/31/22 13:55 Sodium 140 mmol/L (136-145) 08/30/22 04:12 Potassium 4.3 mmol/L (3.5-5.1) 08/30/22 04:12 Chloride 103 mmol/L (98-107) 08/30/22 04:12 Carbon Dioxide 28 mmol/L (22-29) 08/30/22 04:12 Anion Gap 13.3 (5-19) 08/30/22 04:12 BUN 19 mg/dL (8-23) 08/30/22 04:12 Creatinine 1.0 mg/dL (0.7-1.2) 08/30/22 04:12 GFR Calculation Not Reportable 08/30/22 04:12 Glucose 97 mg/dL (65-115) 08/30/22 04:12 Estimat Average Glucose 108 08/29/22 03:15 Hemoglobin A1c 5.4 % (4.0-6.0) 08/29/22 03:15 Calculated Osmolality 292 mOsm/kg (285-295) 08/30/22 04:12 Calcium 9.1 mg/dL (8.5-10.5) 08/30/22 04:12 Phosphorus 3.5 mg/dL (2.5-4.5) 08/29/22 03:15 Magnesium 2.2 mg/dL (1.7-2.3) 08/29/22 03:15 Total Bilirubin 0.3 mg/dL (0.15-1.2) 08/28/22 11:05 AST 26 U/L (0-40) 08/28/22 11:05 ALT 24 U/L (0-41) 08/28/22 11:05 Alkaline Phosphatase 73 U/L (40-130) 08/28/22 11:05 Troponin T Baseline 24 ng/L (0-15) H 08/28/22 11:05 Troponin T 120 Minute 28.77 ng/L (0-15) H 08/28/22 13:26 Delta Troponin T 4.77 ABS# (0-10) 08/28/22 13:26 Troponin T Hi Sens 6Hr 31.97 ng/L (0-15) H 08/28/22 17:13 Troponin T Hi Sens 6Hr Delta 7.97 ng/L (0-12) 08/28/22 17:13 NT-Pro-B Natriuret Pep 880 pg/mL (0-450) H 08/29/22 03:15 Total Protein 7.3 g/dL (6.6-8.7) 08/28/22 11:05 Albumin 4.1 g/dL (3.5-5.2) 08/28/22 11:05 Globulin 3.2 g/dL (1.3-4.6) 08/28/22 11:05 TSH 4.87 uIU/mL (0.27-4.20) H 08/29/22 03:15 Urine Color Yellow (Yellow) 08/28/22 14:28 Urine Appearance Cloudy (CLEAR) A 08/28/22 14:28 Urine pH 5 (5-7) 08/28/22 14:28 Ur Specific Pollock 1.025 (1.005-1.030) 08/28/22 14:28 Urine Protein Trace (Negative) 08/28/22 14:28 Urine Glucose (UA) Norm (Normal) 08/28/22 14:28 Urine Ketones 1+ (Negative) H 08/28/22 14:28 Urine Blood Neg (Negative) 08/28/22 14:28 Urine Nitrate Negative (Negative) 08/28/22 14:28 Urine Bilirubin Neg (Negative) 08/28/22 14:28 Urine Urobilinogen Norm mg/dL (Negative) 08/28/22 14:28 Ur Leukocyte Esterase Negative (Negative) 08/28/22 14:28 Urine RBC None /hpf (0-2) 08/28/22 14:28 Urine WBC 0-4 /hpf (0-5) H 08/28/22 14:28 Ur Squamous Epith Cells None /hpf (0-5) 08/28/22 14:28 Calcium Oxalate Crystal 0-4 /hpf H 08/28/22 14:28 Amorphous Sediment Not Reportable 08/28/22 14:28 Urine Bacteria Trace /hpf (NONE) 08/28/22 14:28 Urine Mucus Trace /hpf 08/28/22 14:28 Hep Bs Antigen Non-reactive (Nonreactive) 08/30/22 19:46 Hep Bs Antibody 3.5 (11.5-1000) L 08/30/22 19:46 Hep B Core Total Ab Non-reactive (Nonreactive) 08/30/22 19:46 Vitals Last Vital Signs Temp 98.0 F 08/31/22 15:16 Pulse 63 08/31/22 15:38 Resp 20 H 08/31/22 15:16 BP 135/62 08/31/22 15:16 Pulse Ox 99 08/31/22 15:38 O2 Del Method 08/31/22 15:38 O2 Flow Rate 2 08/31/22 00:00 Discharge Plan Discharge Patient Disposition: Home Condition: Stable Prescriptions: New diltiazem HCl 120 mg Capsule,Extended Release 24hr 120 mg PO DAILY 30 Days Qty: 30 3RF Eliquis 5 mg tablet 5 mg PO BID Qty: 60 3RF Continued levothyroxine 137 mcg tablet 137 mcg PO QAM aspirin 81 mg Tablet,Delayed Release (Dr/Ec) 81 mg PO QAM acetaminophen [Tylenol Arthritis Pain] 650 mg Tablet Extended Release 1,300 mg PO BID modafinil 200 mg tablet 300 mg PO QAM balsalazide 750 mg capsule 1,500 mg PO QAM rosuvastatin 10 mg tablet 10 mg PO QAM naproxen 250 mg Tablet 500 mg PO Q6H PRN (Reason: Pain) Vitamin C 500 mg Tablet,Chewable 1,500 mg PO DAILY cranberry extract 50 mg Tablet,Chewable 100 mg PO DAILY Elderberry Gummies 1 cap PO DAILY Discharge Orders: Discharge Order (Routine); Ordered 08/31/22 Ordered By: Richard Kamara Referrals: Noreen Douglas MD [Physician] - 1 month (You will have a follow-up appt with your front office director in 1 month. If you have not heard from them by Saturday, please call the clinic.) Patient Instructions: Anticoagulation Therapy, Diltiazem (By mouth), Apixaban (By mouth), Atrial Flutter (DC), A-fib (Atrial Fibrillation) (DC), Transcatheter Aortic Valve Replacement (DC), Opioid Safety, Post Angiogram Home Care Instructions Discharge Attestations Time Spent in Discharge Care*: less than 30 min Quality Metrics Clinical Quality Measures [ No reported AMI, CVA or VTE this stay] Coding Level of Care Code Acute Chg FW DC note Exam Expanded Problem Focused Diagnoses Chest pain R07.89 Chest pain type: other chest pain Atrial flutter with rapid ventricular response I48.92 Aortic valve stenosis I35.0 Cardiac valve disease etiology: etiology unspecified Hypothyroidism E03.9 Hypothyroidism type: acquired Hyperlipidemia E78.2 Hyperlipidemia type: mixed hyperlipidemia Wound of left lower extremity S81.802A Peripheral vascular disease I73.9 Ulcerative colitis K51.90 Digestive disease complication type: without complication Ulcerative colitis location: unspecified ulcerative colitis location ADHD F90.9 Asthma J45.909
--- NOTE | 2022-08-31 20:04 | PC.NURSE ---
discharge packet provided pt w/maggie blackburn. discharge new meds educated to pt such as dosing, timing and frequency and s/effects. instructed pt to ff-up with his pcp and meal cooker. reminded [facility] [place] [place] and they are open tomorrow until 2 pm. pt verbalizes understandig. home with his son.
[2022-09-01 00:39] LABS: Chol HDL Ratio 2.34 mg/dL (1.0-5.00); Cholesterol 124 mg/dL (0-200); HDL Cholesterol 53 mg/dL (60-100); LDL Cholesterol Calculated 54 mg/dL (50-129); LDL HDL Ratio 1.02 RATIO (0.00-3.22); Triglycerides 83 mg/dL (0-150)
[2022-09-01 20:20] LABS: HIV RNA (CPY/ML) NOT DETECTED (NOT DETECTED); HIV RNA LOG NOT DETECTED copies/mL (NOT DETECTED)
[2022-09-03 19:31] LABS: HEP C RNA Viral Load Quant <1.18 NOT DETECTED Log IU/mL (NOT DETECTED); HEP C RNA Viral Load Quant <15 NOT DETECTED IU/mL (NOT DETECTED)
== END 2022-08-31 20:06 | disposition home or self-care (01) | DRG 287 ==
LOC: ER 14:42 → CSU 15:07
PROVIDERS: Internal Medicine Cardiovascular Disease; Admitting Provider Hospitalist; Emergency Provider Emergency Medicine; Visit Provider Internal Medicine
DX: I48.92 Unspecified atrial flutter (principal); K51.90 Ulcerative colitis, unspecified, without complications; I48.0 Paroxysmal atrial fibrillation; I25.10 Atherosclerotic heart disease of native coronary artery without angina pectoris; I73.9 Peripheral vascular disease, unspecified; K59.00 Constipation, unspecified; F90.9 Attention-deficit hyperactivity disorder, unspecified type; I35.2 Nonrheumatic aortic (valve) stenosis with insufficiency; E78.2 Mixed hyperlipidemia; E03.9 Hypothyroidism, unspecified; Z96.652 Presence of left artificial knee joint; Z87.891 Personal history of nicotine dependence; J45.909 Unspecified asthma, uncomplicated; Z79.82 Long term (current) use of aspirin; I87.8 Other specified disorders of veins
CPT/HCPCS: 36415; 71045; 80048; 80053; 80061; 81001; 82810; 83036; 83735; 83880; 84100; 84443; 84484; 85025; 85610; 85730; 86705; 86706; 87340; 87522; 87536; 93005; 93306; 93456; 96365; 96367; 96372; 96375; 96376; 99152; 99153; 99213; 99285; C1751; C1769; C1887; C1894; G0378; J0610; J1644; J1650; J2250; J3010; J3480; J3490; J7030; Q0163; Q9967

== ENCOUNTER → 2022-09-04 10:25 | Outpatient (BNVA) | payer MEDICARE, OTHER, SELFPAY | PROVIDERS: Visit Provider Nurse Practitioner Family | DX: I87.2 Venous insufficiency (chronic) (peripheral) (principal); L97.822 Non-pressure chronic ulcer of other part of left lower leg with fat layer exposed | CPT/HCPCS: 99212 ==

== ENCOUNTER → 2022-09-18 10:35 | Outpatient (BNVA) | payer MEDICARE, OTHER, SELFPAY | PROVIDERS: Visit Provider Thoracic Surgery (Cardiothoracic Vascular Surgery) | DX: I96 Gangrene, not elsewhere classified (principal); I87.2 Venous insufficiency (chronic) (peripheral); L97.822 Non-pressure chronic ulcer of other part of left lower leg with fat layer exposed | CPT/HCPCS: 99212 ==

== ENCOUNTER → 2022-10-02 10:34 | Outpatient (BNVA) | payer MEDICARE, SELFPAY | PROVIDERS: Visit Provider Thoracic Surgery (Cardiothoracic Vascular Surgery) | DX: I96 Gangrene, not elsewhere classified (principal); I87.2 Venous insufficiency (chronic) (peripheral); L97.822 Non-pressure chronic ulcer of other part of left lower leg with fat layer exposed | CPT/HCPCS: 97597; A6021; A6252 ==

== ENCOUNTER → 2022-10-05 09:43 | Outpatient (BNVA) | payer MEDICARE, SELFPAY | PROVIDERS: Visit Provider Thoracic Surgery (Cardiothoracic Vascular Surgery) | DX: I96 Gangrene, not elsewhere classified (principal); I87.2 Venous insufficiency (chronic) (peripheral); L97.822 Non-pressure chronic ulcer of other part of left lower leg with fat layer exposed | CPT/HCPCS: 29581; A6021; A6252 ==

== ENCOUNTER → 2022-10-08 10:28 | Outpatient (BNVA) | payer MEDICARE, SELFPAY | PROVIDERS: Visit Provider Thoracic Surgery (Cardiothoracic Vascular Surgery) | DX: I96 Gangrene, not elsewhere classified (principal); I87.2 Venous insufficiency (chronic) (peripheral); L97.822 Non-pressure chronic ulcer of other part of left lower leg with fat layer exposed | CPT/HCPCS: 97597; A6021; A6212 ==

== ENCOUNTER → 2022-10-15 10:19 | Outpatient (BNVA) | payer MEDICARE, SELFPAY | PROVIDERS: Visit Provider Thoracic Surgery (Cardiothoracic Vascular Surgery) | DX: I96 Gangrene, not elsewhere classified (principal); I87.2 Venous insufficiency (chronic) (peripheral); L97.822 Non-pressure chronic ulcer of other part of left lower leg with fat layer exposed | CPT/HCPCS: 97597; A6021; A6251 ==

== ENCOUNTER → 2022-10-29 11:02 | Outpatient (BNVA) | payer MEDICARE, SELFPAY | PROVIDERS: Visit Provider Thoracic Surgery (Cardiothoracic Vascular Surgery) | DX: I96 Gangrene, not elsewhere classified (principal); I87.2 Venous insufficiency (chronic) (peripheral); L97.822 Non-pressure chronic ulcer of other part of left lower leg with fat layer exposed | CPT/HCPCS: 99213; A6021; A6252 ==

== ENCOUNTER → 2022-11-05 16:49 | Outpatient (BNVA) | payer MEDICARE, SELFPAY | PROVIDERS: Visit Provider Thoracic Surgery (Cardiothoracic Vascular Surgery) | DX: I96 Gangrene, not elsewhere classified (principal); I87.2 Venous insufficiency (chronic) (peripheral); L97.822 Non-pressure chronic ulcer of other part of left lower leg with fat layer exposed | CPT/HCPCS: 97597; A6021; A6252 ==